=== PATIENT | male | born 1960 | race Caucasian/White ===

== ENCOUNTER 2017-03-23 17:41 | Inpatient (IN) | payer MEDICARE ==
[~2017-03-23] VITALS: Ht 182.9 cm; Wt 78.9 kg
[~2017-03-23 17:41] MED LIST: BENZ1TAB PO; CLOZ25TA2 PO; IBUP800T23 PO; PALI234P IM; SENN8.6T15 PO; TYLE500T PO
[2017-03-23 18:53] VITALS: BP 149/93; PULSE 98; RESP 16; TEMP 98.2; O2SAT 100
--- NOTE | 2017-03-23 19:14 | PD ---
HPI Chief Complaint: Respiratory Symptoms Time Seen by Provider: 19:13 Travel History International Travel<30 days: No Contact w/Intl Traveler<30days: No Traveled to known affect area: No History of Present Illness HPI 56-year-old male came to the emergency room with history of shortness of breath as per his admission. His legal guardian is here who says that patient is acting bizarre as per the assisted living facility. He has history of schizophrenia and had gone to [facility]. When he came back from he was breathing fast and said he was going to . They called 911 and patient was brought in by EMS. His vital signs are stable. He talks to me when I asked questions repeatedly and while talking his breathing gets normal. When his sitting quietly he occasionally starts breathing fast and opening his mouth like air hunger. However his vitals remained stable including a pulse ox. I was told by the family/guardian in the room that patient may have done marijuana because he admitted to doing one earlier. Patient is not the best or reliable historian. [facility] Past Medical History Narrative Medical List of his past medical, surgical, social and family history is reviewed from the nursing note. Medical History: Unable to Obtain Diminished Hearing: No Musculoskeletal: Yes (scabies) Schizophrenia: Yes Tetanus Vaccination: Unknown Past Surgical History Surgical History: Unable to Obtain Social History Alcohol Use: Yes Tobacco Use: Yes Substance Use: Yes Allergies-Medications (Allergen,Severity, Reaction): Coded Allergies: No Known Allergies (Verified , 02/05/15) Comments No known drug allergies. Reported Meds & Prescriptions Reported Meds & Active Scripts Active Reported Proair Hfa 8.5 GM Inh (Albuterol Sulfate) 90 Mcg/Act Aer 2 Puff INH Q6H PRN 108 mcg/actuation Pantoprazole (Pantoprazole Sodium) 40 Mg Tab 40 Mg PO DAILY Lisinopril 10 Mg Tab 10 Mg PO DAILY Invega Sustenna Inj (Paliperidone Palmitate) 234 Mg/1.5 Ml Inj 234 Mg IM Q28D Clozapine 100 Mg Tab 200 Mg PO HS Benztropine (Benztropine Mesylate) 0.5 Mg Tab 1 Mg PO BID Anoro Ellipta Inh (Umeclidinium/Vilanterol) 62.5-25 Mcg/Act Aero 1 Puff INH DAILY Tylenol (Acetaminophen) 325 Mg Tab 325 Mg PO BID Narrative Medication List of his home medication reviewed from the nursing note. Review of Systems Except as stated in HPI: all other systems reviewed are Neg Physical Exam Narrative GENERAL: Awake, alert, anxious, moderate distress SKIN: Focused skin assessment warm/dry. HEAD: Atraumatic. Normocephalic. EYES: Pupils equal and round. No scleral icterus. No injection or drainage. ENT: No nasal bleeding or discharge. Dry mucous membrane NECK: Trachea midline. No JVD. CARDIOVASCULAR: Regular rate and rhythm. No murmur appreciated. RESPIRATORY: No accessory muscle use. Clear to auscultation. Breath sounds equal bilaterally. Paroxysmal tachypnea GASTROINTESTINAL: Abdomen soft, non-tender, nondistended. Hepatic and splenic margins not palpable. MUSCULOSKELETAL: No obvious deformities. No clubbing. No cyanosis. No edema. NEUROLOGICAL: Awake and alert. No obvious cranial nerve deficits. Motor grossly within normal limits. Normal speech. PSYCHIATRIC: Appropriate mood and affect; insight and judgment normal. Data Data Last Documented VS Vital Signs Date Time Temp Pulse Resp B/P Pulse Ox O2 Delivery O2 Flow Rate FiO2 03/23/17 21:29 97.4 03/23/17 21:18 100 Nasal Cannula 2 03/23/17 18:54 101 14 03/23/17 18:53 149/93 Orders Complete Blood Count With Diff (03/23/17 19:43) Comprehensive Metabolic Panel (03/23/17 19:43) Lactic Acid Sepsis Protocol (03/23/17 19:43) Urinalysis - C+S If Indicated (03/23/17 19:43) Blood Culture (03/23/17 19:43) Chest, Single Ap (03/23/17 19:43) Blood Gas Venous (Vbg) (03/23/17 19:43) Blood Glucose (03/23/17 19:43) Ecg Monitoring (03/23/17 19:43) Iv Access Insert/Monitor (03/23/17 19:43) Oximetry (03/23/17 19:43) Oxygen Administration (03/23/17 19:43) Sodium Chlor 0.9% 1000 Ml Inj (Ns 1000 M (03/23/17 19:43) Sodium Chlor 0.9% 1000 Ml Inj (Ns 1000 M (03/23/17 19:43) Sodium Chlor 0.9% 1000 Ml Inj (Ns 1000 M (03/23/17 19:43) Lorazepam Inj (Ativan Inj) (03/23/17 19:45) Electrocardiogram (03/23/17 ) Piperacil-Tazo 4.5 Gm Premix (Zosyn 4.5 (03/23/17 21:00) Vancomycin Inj (Vancomycin Inj) (03/23/17 21:00) Admit Order (Ed Use Only) (03/23/17 21:34) Labs Laboratory Tests Test 03/23/17 03/23/17 19:50 20:01 Blood Gas Puncture Site Blood Gas Patient Temperature 98.6 Venous Blood pH 7.51 Venous Blood Partial Pressure 20 mmHg CO2 Venous Blood Partial Pressure 38 mmHg O2 Venous Blood HCO3 16 mmol/L Venous Blood Oxygen Saturation 73 % Venous Blood Oxygen Content 13.9 Vol % Venous Blood Base Excess -7.1 mmol/L Oxygen Delivery Device NASAL CANNULA Blood Gas Liter Flow 2 L/M White Blood Count 20.8 TH/MM3 Red Blood Count 4.50 MIL/MM3 Hemoglobin 13.3 GM/DL Hematocrit 39.1 % Mean Corpuscular Volume 86.8 FL Mean Corpuscular Hemoglobin 29.5 PG Mean Corpuscular Hemoglobin 34.0 % Concent Red Cell Distribution Width 14.3 % Platelet Count 324 TH/MM3 Mean Platelet Volume 7.6 FL Neutrophils (%) (Auto) 90.2 % Lymphocytes (%) (Auto) 6.2 % Monocytes (%) (Auto) 3.3 % Eosinophils (%) (Auto) 0.0 % Basophils (%) (Auto) 0.3 % Neutrophils # (Auto) 18.8 TH/MM3 Lymphocytes # (Auto) 1.3 TH/MM3 Monocytes # (Auto) 0.7 TH/MM3 Eosinophils # (Auto) 0.0 TH/MM3 Basophils # (Auto) 0.1 TH/MM3 CBC Comment DIFF FINAL Differential Comment Urine Color YELLOW Urine Turbidity CLEAR Urine pH 5.5 Urine Specific [place] 1.016 Urine Protein NEG mg/dL Urine Glucose (UA) NEG mg/dL Urine Ketones TRACE mg/dL Urine Occult Blood NEG Urine Nitrite NEG Urine Bilirubin NEG Urine Urobilinogen 2.0 MG/DL Urine Leukocyte Esterase NEG Urine RBC 1 /hpf Urine WBC LESS THAN 1 /hpf Urine Mucus FEW /lpf Microscopic Urinalysis Comment CATH-CULT NOT IND Sodium Level 140 MEQ/L Potassium Level 3.8 MEQ/L Chloride Level 111 MEQ/L Carbon Dioxide Level 17.5 MEQ/L Anion Gap 12 MEQ/L Blood Urea Nitrogen 12 MG/DL Creatinine 1.07 MG/DL Estimat Glomerular Filtration 72 ML/MIN Rate Random Glucose 110 MG/DL Lactic Acid Level 2.8 mmol/L Calcium Level 9.3 MG/DL Total Bilirubin 0.8 MG/DL Aspartate Amino Transf 19 U/L (AST/SGOT) Alanine Aminotransferase 26 U/L (ALT/SGPT) Alkaline Phosphatase 105 U/L Total Protein 7.4 GM/DL Albumin 4.0 GM/DL MDM Medical Decision Making Medical Screen Exam Complete: Yes Emergency Medical Condition: Yes Medical Record Reviewed: Yes Interpretation(s) Twelve-lead EKG was reviewed by me. Normal sinus rhythm, normal axis, nonspecific ST-T wave changes, first-degree AV block. Heart rate of 90 bpm. Differential Diagnosis Substance abuse, psychosis, PE, pneumonia, sepsis Narrative Course 7:58 PM the possibilities are quite a few with this patient. This could be psychosis secondary to his psych illness. However substance abuse, PE are within the realm of possibilities. I have ordered a arterial blood gas and sepsis workup. He is getting IV fluid bolus. Awaiting for the chest x-ray. My threshold to do a CT pulmonary angiogram is low. 9:23 PM lactic acid is elevated. This completes the picture of the patient's presentation. He is in metabolic acidosis probably secondary to sepsis which is making him tachypneic. This is perceived by the patient as respiratory distress. I still do not have a source for his sepsis. However he is getting fluid and antibiotic as per sepsis protocol. He will require admission. Awaiting for the admitting team to call back. Critical Care Narrative Aggregate critical care time was 30 minutes. Time to perform other separately billable procedures was not included in the critical care time. My time did not include minutes spent treating any other patients simultaneously or on activities that did not directly contribute to the patient's treatment. The services I provided to this patient were to treat and/or prevent clinically significant deterioration that could result in: Sepsis, sepsis protocol, lactic acidosis I provided critical care services requiring my management, as noted below: Chart data review, documentation time, medication orders and management, vital sign assessments/reviewing monitor data, ordering and reviewing lab tests, ordering and interpreting/reviewing x-rays and diagnostic studies, care of the patient and discussion of the patient with the admitting physicians. Procedures EKG Prior to Arrival: No Sepsis Criteria SIRS Criteria (2 or more): Heart rate over 90, RR > 20 or PaCO2 < 32, WBC > 21674, < 4000 or > 10% bands Severe Sepsis (+one): Lactate >2 Diagnosis Primary Impression: Sepsis Qualified Code: A41.9 - Sepsis, due to unspecified organism Additional Impression: Lactic acidosis Admitting Information Admitting Physician Requests: Admit Scripts Amoxicillin 875 Mg [id number] Mg PO BID #10 TAB Ref 0 Prov:Sabrina Robertson MD R1 03/25/17 Prednisone 20 Mg Tab40 Mg PO DAILY #6 TAB Prov:Sabrina Robertson MD R1 03/25/17 Azithromycin 250 Mg [id number] Mg PO DAILY #10 TAB Prov:Sabrina Robertson MD R1 03/25/17 Ernesto Steward MD Mar 23, 2017 19:14
[2017-03-23] MEDS ORDERED: UMEC1AER INH (19:17)
[2017-03-23] MEDS ORDERED: ALBUAER3 INH (19:17)
[2017-03-23] MEDS ORDERED: TYLE325T PO (19:17)
[2017-03-23] MEDS ORDERED: PANT40TA3 PO (19:17)
[2017-03-23] MEDS ORDERED: CLOZ100T3 PO (19:17)
[2017-03-23] MEDS ORDERED: BENZ0.5T PO (19:17)
[2017-03-23] MEDS ORDERED: PALI234P IM (19:17)
[2017-03-23] MEDS ORDERED: LISI10TA3 PO (19:17)
[2017-03-23] MEDS ORDERED: SODIUM CHLOR 0.9% 1000 ML INJ 700 ML IV ONE (19:43)
[2017-03-23] MEDS ORDERED: SODIUM CHLOR 0.9% 1000 ML INJ 1,000 ML IV ONE ×2 (19:43)
[2017-03-23] MEDS ORDERED: LORazepam 2 MG/ML VIAL IV PUSH ONE (19:45)
[2017-03-23 20:11] LABS: BLOOD GAS VENOUS BASE EXCESS -7.1 mmol/L (-2-2); BLOOD GAS VENOUS HCO3 16 mmol/L (22-26); BLOOD GAS VENOUS O2 CONTENT 13.9 Vol % (9.0-17.0); BLOOD GAS VENOUS O2 HGB SAT 73 % (70-76); BLOOD GAS VENOUS PCO2 20 mmHg (44-48); BLOOD GAS VENOUS PO2 38 mmHg (35-40); BLOOD GAS VENOUS pH 7.51 (7.360-7.400); CRITICAL VALUE YES; LITER FLOW 2 L/M; OXYGEN DEVICE NASAL CANNULA; STAT YES; TEMP CORR TO 98.6
--- NOTE | 2017-03-23 20:24 | RADRPT ---
EXAM DATE/TIME: 03/23/2017 20:02 [facility] COMPARISON: CHEST SINGLE AP, March 15, 2011, 15:27. INDICATIONS : Cough MEDICAL HISTORY : None. SURGICAL HISTORY : None. ENCOUNTER: Initial ACUITY: 1 day PAIN SCORE: Non-responsive. LOCATION: chest FINDINGS: A single view of the chest demonstrates the lungs to be symmetrically aerated without evidence of mas s, infiltrate or effusion. The cardiomediastinal contours are unremarkable. Osseous structures are intact. CONCLUSION: No acute disease. There is no evidence of pneumonia. Vikash Wall MD on March 23, 2017 at 20:23 Board Certified Radiologist. This report was verified electronically.
[2017-03-23 20:29] LABS: AUTOMATED NEUTROPHIL # 18.8 TH/MM3 (1.8-7.7); BASOPHIL # 0.1 TH/MM3 (0-0.2); BASOPHIL % 0.3 % (0.0-2.0); HEMATOCRIT 39.1 % (39.0-51.0); HEMO FLAGS DIFF FINAL; LYMPH % 6.2 % (9.0-44.0); LYMPHOCYTE # 1.3 TH/MM3 (1.0-4.8); MEAN CELL VOLUME 86.8 FL (80.0-100.0); MEAN CORPUSCULAR HEMOGLOBIN 29.5 PG (27.0-34.0); MONO % 3.3 % (0.0-8.0); NEUT % 90.2 % (16.0-70.0); PLATELET COUNT 324 TH/MM3 (150-450); RED CELL DISTRIBUTION WIDTH 14.3 % (11.6-17.2); WHITE BLOOD COUNT 20.8 TH/MM3 (4.0-11.0)
[2017-03-23 20:36] LABS: BLOOD, URINE NEG (NEG); COMMENT (UR) CATH-CULT NOT IND; CULTURE IF INDICATED CATH CULTURE NOT IND; GLUCOSE,URINE NEG (NEG); KETONE, URINE TRACE mg/dL (NEG); MUCUS URINE FEW /lpf (OCC); NITRITE,URINE NEG (NEG); PH, URINE 5.5 (5.0-8.5); URINE COLOR YELLOW (YELLW/STRAW)
[2017-03-23 20:52] LABS: ANION GAP 12 MEQ/L (5-15); AST (GOT) 19 U/L (15-37); BICARBONATE 17.5 MEQ/L (21.0-32.0); BLOOD UREA NITROGEN 12 MG/DL (7-18); CHLORIDE 111 MEQ/L (98-107); GLOMERULAR FILTRATION RATE 72 ML/MIN (>89); POTASSIUM 3.8 MEQ/L (3.5-5.1); SODIUM (NA) 140 MEQ/L (136-145)
[2017-03-23 20:53] LABS: ALT (GPT) 26 U/L (12-78)
[2017-03-23 20:54] LABS: ALKALINE PHOSPHATASE 105 U/L (45-117); TOTAL BILIRUBIN ADULT 0.8 MG/DL (0.2-1.0)
[2017-03-23] MEDS ORDERED: VANCOMYCIN INJ 1,000 MG in SODIUM CHLOR 0.9% 250 ML INJ 250 ML IV ONE (21:00)
[2017-03-23] MEDS ORDERED: PIPERACIL-TAZO 4.5 GM PREMIX 100 ML IV ONE (21:00)
[2017-03-23 21:18] VITALS: O2SAT 100
[2017-03-23 21:29] VITALS: TEMP 97.4
[2017-03-23 21:45] VITALS: O2SAT 100
[2017-03-23] MEDS ORDERED: SODIUM CHLORIDE 0.9% FLUSH 10 ML FLUSH IV FLUSH PRN (21:45)
[2017-03-23 22:24] LABS: LACTIC ACID GHOST NOT REPORTABLE
[2017-03-23] MEDS: ENOXAPARIN SODIUM 40 MG/0.4 ML SYRINGE SQ SCH (22:45)
[2017-03-23] MEDS ORDERED: guaiFENesin/CODEINE SYRUP 200 MG/20 MG/10 ML CUP PO PRN (22:45)
[2017-03-23] MEDS ORDERED: ONDANSETRON HCL 4 MG/2 ML VIAL IV PRN (22:45)
[2017-03-23] MEDS ORDERED: ACETAMINOPHEN 325 MG TAB PO PRN (22:45)
[2017-03-23] MEDS ORDERED: RESP: ALBUTEROL 2.5 MG/IPRATROPIUM 0.5 MG NEB (PRN) INH (22:45)
--- NOTE | 2017-03-23 23:14 | RADRPT ---
EXAM DATE/TIME: 03/23/2017 22:59 [facility] COMPARISON: CHEST SINGLE AP, March 23, 2017, 20:02. INDICATIONS : Short of breath MEDICAL HISTORY : None. SURGICAL HISTORY : None. ENCOUNTER: Subsequent ACUITY: 1 day PAIN SCORE: 0/10 LOCATION: chest FINDINGS: PA and lateral views of the chest demonstrate the lungs to be symmetrically aerated without evidence of mass, infiltrate or effusion. Patient has a mild diffuse interstitial prominence throughout the natasha ngs The cardiomediastinal contours are unremarkable. Osseous structures are intact. CONCLUSION: Mild interstitial prominence throughout the lungs increased since the previous film. No pleural effu dayan is seen. Alin Huynh MD on March 23, 2017 at 23:12 Board Certified Radiologist. This report was verified electronically.
--- NOTE | 2017-03-23 23:25 | HHI.HP ---
HPI Service Family Medicine Primary Care Physician Unknown Admission Diagnosis sepsis, metabolic acidosis Diagnoses: International Travel<30 Days: No Contact w/Intl Traveler<30days: No Known Affected Area: No History of Present Illness Patient is a 56-year-old man with history of schizophrenia who presents with shortness of breath, tachypnea, sepsis, lactic acidosis, metabolic acidosis. Patient reports that for the past week he's had a bad cold with associated runny nose and cough. Then, this evening as he was walking back from [employer], he began to feel short of breath and "weird." 911 was called and patient was taken to the [facility] Emergency Department, where he was noted to be tachypneic with a significant leukocytosis and lactic acidosis. He denies any fever or chills. He denies any sore throat, sinus pressure, chest pain. He denies any abdominal pain, nausea, vomiting, diarrhea, skin breakdown. Review of Systems Constitutional: COMPLAINS OF: Fatigue, Dizziness, DENIES: Fever, Chills Endocrine: DENIES: Polydipsia, Polyuria Eyes: DENIES: Blurred vision, Diplopia, Eye inflammation, Eye pain, Vision loss Ears, nose, mouth, throat: COMPLAINS OF: Running Nose, DENIES: Throat pain, Sinus Pain Respiratory: COMPLAINS OF: Cough, Shortness of breath, DENIES: Sputum production Cardiovascular: DENIES: Chest pain, Palpitations, Syncope Gastrointestinal: DENIES: Abdominal pain, Black stools, Bloody stools, Constipation, Diarrhea, Nausea, Vomiting Genitourinary: DENIES: Dysuria Musculoskeletal: DENIES: Joint pain, Muscle aches, Back pain, Neck pain Integumentary: DENIES: Rash Hematologic/lymphatic: DENIES: Bruising Neurologic: COMPLAINS OF: Tremor (patient reports a history of tremor since initiating injectable medication treatment for his schizophrenia), DENIES: Headache, Localized weakness Past Family Social History Past Medical History Schizophrenia on long-term injectable medications Past Surgical History Denies Reported Medications Reported Meds & Active Scripts Active Reported Proair Hfa 8.5 GM Inh (Albuterol Sulfate) 90 Mcg/Act Aer 2 Puff INH Q6H PRN 108 mcg/actuation Pantoprazole (Pantoprazole Sodium) 40 Mg Tab 40 Mg PO DAILY Lisinopril 10 Mg Tab 10 Mg PO DAILY Invega Sustenna Inj (Paliperidone Palmitate) 234 Mg/1.5 Ml Inj 234 Mg IM Q28D Clozapine 100 Mg Tab 200 Mg PO HS Benztropine (Benztropine Mesylate) 0.5 Mg Tab 1 Mg PO BID Anoro Ellipta Inh (Umeclidinium/Vilanterol) 62.5-25 Mcg/Act Aero 1 Puff INH DAILY Tylenol (Acetaminophen) 325 Mg Tab 325 Mg PO BID Allergies: Coded Allergies: No Known Allergies (Verified , 02/05/15) Active Ordered Medications Current Medications Medications (Trade) Dose Ordered Sig/Bruno Route Start Time Stop Time Status Last Admin (NS 1000 ml Inj) 1,000 ml @ 125 mls/hr Q8H IV 03/23/17 21:32 (NS Flush) 2 ml UNSCH PRN IV FLUSH 03/23/17 21:45 Sodium Chloride 2 ml 2 ml BID IV FLUSH 03/24/17 09:00 (Rocephin Inj/NS Inj) 100 ml @ 200 mls/hr Q24H IV 03/24/17 09:00 (Zithromax) 500 mg DAILY PO 03/24/17 09:00 (Tylenol) 650 mg Q4H PRN PO 03/23/17 22:45 (Zofran Inj) 4 mg Q6H PRN IV 03/23/17 22:45 (Robitussin Ac 200-20 Mg/10 ml Liq) 10 ml Q4H PRN PO 03/23/17 22:45 (Lovenox Inj) 40 mg Q24H SQ 03/23/17 22:45 (Restoril) 30 mg HS PRN PO 03/24/17 03:00 03/24/17 03:17 (Tylenol) 325 mg BID PO 03/24/17 09:00 (Ventolin Hfa Inh) 2 puff Q6H PRN INH 03/24/17 03:15 (Cogentin) 1 mg BID PO 03/24/17 09:00 (Clozaril) 200 mg HS PO 03/24/17 21:00 (Prinivil) 10 mg DAILY PO 03/24/17 09:00 (Invega Sustenna Inj) 234 mg Q28D IM 03/24/17 03:15 (Protonix) 40 mg DAILY PO 03/24/17 09:00 Family History Not obtainable from patient as he is difficult to understand. Social History Patient reports that [facility] Patient reports that he smokes cigarettes. He smokes red [place]. He denies dipping them in anything or smoking anything else. He denied any alcohol or drug use. Physical Exam Vital Signs Vital Signs Date Time Temp Pulse Resp B/P Pulse Ox O2 Delivery O2 Flow Rate FiO2 03/23/17 21:45 100 Nasal Cannula 2.00 03/23/17 21:29 97.4 03/23/17 21:18 100 Nasal Cannula 2 03/23/17 21:18 100 Nasal Cannula 2 03/23/17 18:54 101 14 100 Nasal Cannula 2 03/23/17 18:53 98.2 98 16 149/93 100 Nasal Cannula 2 Physical Exam GENERAL: This is a well-nourished, well-developed male patient, who is lying in bed, wide-eyed with bilateral upper extremity tremor and intermittent tachypnea with associated mouth breathing. SKIN: No rashes, ecchymoses or lesions. Cool and dry. HEAD: Atraumatic. Normocephalic. EYES: Pupils equal round and reactive. Extraocular motions intact. No scleral icterus. No injection or drainage. ENT: Nose without bleeding, purulent drainage or septal hematoma. Throat without erythema, tonsillar hypertrophy or exudate. Uvula midline. Airway patent. NECK: Trachea midline. No JVD or lymphadenopathy. Supple, nontender, no meningeal signs. CARDIOVASCULAR: Regular rate and rhythm without murmurs, gallops, or rubs. RESPIRATORY: Diffuse wheezes and rhonchi and extremely coarse breath sounds bilaterally. GASTROINTESTINAL: Abdomen soft, non-tender, nondistended. No hepato-splenomegaly , or palpable masses. No guarding. MUSCULOSKELETAL: Extremities without clubbing, cyanosis, or edema. No joint tenderness, effusion, or edema noted. No calf tenderness. NEUROLOGICAL: Awake and alert. Patient with unintentional tremor of both upper extremities. Cranial nerves II through XII grossly intact. Motor and sensory grossly within normal limits. Normal speech. Laboratory Laboratory Tests Test 03/23/17 03/23/17 19:50 20:01 Blood Gas Puncture Site Blood Gas Patient Temperature 98.6 Venous Blood pH 7.51 Venous Blood Partial Pressure 20 CO2 Venous Blood Partial Pressure 38 O2 Venous Blood HCO3 16 Venous Blood Oxygen Saturation 73 Venous Blood Oxygen Content 13.9 Venous Blood Base Excess -7.1 Oxygen Delivery Device NASAL CANNULA Blood Gas Liter Flow 2 White Blood Count 20.8 Red Blood Count 4.50 Hemoglobin 13.3 Hematocrit 39.1 Mean Corpuscular Volume 86.8 Mean Corpuscular Hemoglobin 29.5 Mean Corpuscular Hemoglobin 34.0 Concent Red Cell Distribution Width 14.3 Platelet Count 324 Mean Platelet Volume 7.6 Neutrophils (%) (Auto) 90.2 Lymphocytes (%) (Auto) 6.2 Monocytes (%) (Auto) 3.3 Eosinophils (%) (Auto) 0.0 Basophils (%) (Auto) 0.3 Neutrophils # (Auto) 18.8 Lymphocytes # (Auto) 1.3 Monocytes # (Auto) 0.7 Eosinophils # (Auto) 0.0 Basophils # (Auto) 0.1 CBC Comment DIFF FINAL Differential Comment Urine Color YELLOW Urine Turbidity CLEAR Urine pH 5.5 Urine Specific [place] 1.016 Urine Protein NEG Urine Glucose (UA) NEG Urine Ketones TRACE Urine Occult Blood NEG Urine Nitrite NEG Urine Bilirubin NEG Urine Urobilinogen 2.0 Urine Leukocyte Esterase NEG Urine RBC 1 Urine WBC LESS THAN 1 Urine Mucus FEW Microscopic Urinalysis Comment CATH-CULT NOT IND Sodium Level 140 Potassium Level 3.8 Chloride Level 111 Carbon Dioxide Level 17.5 Anion Gap 12 Blood Urea Nitrogen 12 Creatinine 1.07 Estimat Glomerular Filtration 72 Rate Random Glucose 110 Lactic Acid Level 2.8 Calcium Level 9.3 Total Bilirubin 0.8 Aspartate Amino Transf 19 (AST/SGOT) Alanine Aminotransferase 26 (ALT/SGPT) Alkaline Phosphatase 105 Total Protein 7.4 Albumin 4.0 Date/Time Procedure Status Source Growth 03/23/17 20:20 Aerobic Blood Culture Received Blood Peripheral Pending 03/23/17 20:20 Anaerobic Blood Culture Received Blood Peripheral Pending Result Diagram: 03/23/17200003/23/172000 Imaging Last Impressions Chest X-Ray 03/23/171942 Signed Impressions: Service Date/Time: Thursday, March 23, 2017 20:02 - CONCLUSION: No acute disease. There is no evidence of pneumonia. Vikash Wall MD Course In the emergency department, patient had Ativan IV, normal saline IV 3 L, blood glucose, VBG, chest x-ray, blood culture, UA, lactic acid, CMP, CBC, EKG, vancomycin IV, Zosyn IV, admission order, urine drug screen. Assessment and Plan Assessment and Plan Patient is a 56-year-old smoker with a one-week history of bad cold with associated cough and runny nose who presents septic with leukocytosis of 20.8 with 90% neutrophils, lactic acid of 2.8. Lung exam remarkable for coarse breath sounds bilaterally with diffuse wheezes and rhonchi. We'll admit for sepsis workup, IV antibiotics for empiric treatment of pneumonia. Code Status Full code Discussed Condition With Patient seen and discussed with Dr. Delgado. Problem List: (1) Pneumonia Status: Acute Plan: Patient is a 56-year-old smoker with a one-week history of bad cold with associated cough and runny nose who presents septic with leukocytosis of 20.8 with 90% neutrophils, lactic acid of 2.8. Lung exam remarkable for coarse breath sounds bilaterally with diffuse wheezes and rhonchi. We'll admit for sepsis workup, IV antibiotics for empiric treatment of pneumonia. Patient received 3 L of IVF bolus in ED. 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 Prednisone 40 mg by mouth daily See assessment and plan above (5) FEN, ppx, chronic medical conditions Status: Acute Plan: Fluids: Maintenance IV fluids Electrolytes: Monitor and replete Nutrition: Regular basic diet DVT prophylaxis: Lovenox 40 mg subcutaneous every 24 hours GI prophylaxis: Patient on Protonix 40 mg by mouth daily Chronic medical conditions: Continue Tylenol by mouth twice a day for pain Plan to wean patient back onto albuterol inhaler for shortness of breath Continue benztropine for Parkinson's Continue clozapine and Invega for schizophrenia Continue lisinopril for hypertension Continue Anoro Ellipta inhaler or pharmacy replacement Physician Certification 2 Midnight Certification Type: Admission for Inpatient Services Order for Inpatient Services The services are ordered in accordance with Medicare regulations or non- Medicare payer requirements, as applicable. In the case of services not specified as inpatient-only, they are appropriately provided as inpatient services in accordance with the 2-midnight benchmark. Estimated LOS (days): 2 2 days is the estimated time the patient will need to remain in the hospital, assuming treatment plan goals are met and no additional complications. Post-Hospital Plan: Penit[facility] Problem Qualifiers (1) Sepsis: Qualified Code: A41.9 - Sepsis, due to unspecified organism Vikash Myers MD R1 Mar 23, 2017 23:25
[2017-03-23 23:55] VITALS: O2SAT 99
[2017-03-23] MEDS: RESP: ALBUTEROL 2.5 MG/IPRATROPIUM 0.5 MG NEB (SCH) INH (23:58)
[2017-03-24] VITALS (10 sets, daily range): BP systolic 105–144; BP diastolic 66–88; PULSE 82–112; RESP 20–24; TEMP 96.1–96.7; O2SAT 97–100
[2017-03-24 00:16] LABS: AMPHETAMINE, URINE NEG (NEG); BARBITURATES, URINE NEG (NEG); COCAINE, URINE NEG (NEG)
[2017-03-24] MEDS ORDERED: TEMAZEPAM 15 MG CAP PO PRN (03:00)
[2017-03-24] MEDS ORDERED: PALIPERIDONE PALMITATE 234 MG/1.5 ML SYRINGE IM SCH (03:15)
[2017-03-24] MEDS ORDERED: ALBUTEROL SULFATE 90 MCG/ACT HFA 18 GM INHALER INH PRN (03:15)
[2017-03-24] MEDS: RESP: ALBUTEROL 2.5 MG/IPRATROPIUM 0.5 MG NEB (SCH) INH ×4 (04:18→21:38)
[2017-03-24] MEDS ORDERED: CANDIDA ALBICANS 0.1 ML SYRINGE I-DERMAL ONE (06:00)
[2017-03-24] MEDS ORDERED: TUBERCULIN, PPD 5 UNITS/0.1 ML SYRINGE I-DERMAL ONE (06:00)
--- NOTE | 2017-03-24 08:07 | HHI.FPPN ---
Subjective Remarks Elan Carty is a 56yo gentleman with h/o schizophrenia admitted for SOB, tachypnea, and sepsis. He has had URI symptoms for one week, with cough and runny nose. For further details, please see resident H&P. This morning, he reports that he feels fine. He denies fevers. He is eating breakfast and drinking liquids without difficulty. He is ambulating without difficulty today. ROS: + SOB, improved. No cough. No wheeze. No fevers. All other systems reviewed are negative. PMH/PSxH/SocHx/FamHx: Per resident H&P. Significant for: schizophrenia with extrapyramidal symptoms from treatment, HTN (per EMR review). No prior surgery. FamHx: unable to obtain. Lives in a boarding home. + tobacco abuse. No alcohol or recreational abuse. Objective Vitals Vital Signs Date Time Temp Pulse Resp B/P Pulse Ox O2 Delivery O2 Flow Rate FiO2 03/24/17 04:19 99 Nasal Cannula 2.00 03/24/17 04:00 96.1 82 22 105/66 100 03/24/17 01:35 96.2 94 20 140/88 98 03/23/17 23:55 99 03/23/17 21:45 100 Nasal Cannula 2.00 03/23/17 21:29 97.4 03/23/17 21:18 100 Nasal Cannula 2 03/23/17 21:18 100 Nasal Cannula 2 03/23/17 18:54 101 14 100 Nasal Cannula 2 03/23/17 18:53 98.2 98 16 149/93 100 Nasal Cannula 2 I/O 03/23/17 03/23/17 03/23/17 03/24/17 03/24/17 03/24/17 07:00 15:00 23:00 07:00 15:00 23:00 Intake Total 3100 ml 240 ml Output Total 500 ml Balance 2600 ml 240 ml Intake Oral 240 ml IV Total 3100 ml Output Urine Total 500 ml # Voids 2 1 Result Diagram: 03/23/17200003/23/172000 Objective Remarks GENERAL: in NAD, no resp distress, nontoxic. Standing in room and ambulating in room without difficulty. HEENT: NCAT, EOMI, no scleral icterus, no conjunctival injection. MMM. NECK: Supple, no meningeal signs CV: RRR, S1 S2. No murmurs CHEST/PULM: Coarse sounds throughout. ABD/GI: +BS, soft, nondistended. EXT: 2+ DP pulses. No edema. No calf tenderness. NEURO: Awake, alert. Normal muscle tone. SKIN: No rashes, no jaundice PSYCH: Mood and affect are appropriate. Speech is slowed. A/P Assessment and Plan Patient is a 56-year-old smoker admitted for sepsis felt secondary to interstitial pneumonia Attending Attestation Patient seen, examined, and discussed with resident team. The patient has been seen and examined. The chart and all resident notes have been reviewed. I agree that inpatient care is appropriate and that a two midnight stay is expected for the reasons documented in the resident history and physical. I have discussed this with the resident and certify the resident s order for inpatient admission. Problem List: (1) Pneumonia Status: Acute Plan: Patient is a 56-year-old smoker with a one-week history of bad cold with associated cough and runny nose who presents septic with leukocytosis of 20.8 with 90% neutrophils, lactic acid of 2.8. Lung exam remarkable for coarse breath sounds bilaterally with diffuse wheezes and rhonchi. We'll admit for sepsis workup, IV antibiotics for empiric treatment of pneumonia. Patient received 3 L of IVF bolus in ED. Lactic acid 2.8 --> 1.9 Antibiotic regimen: Ceftriaxone 1 g IV every 24 hours 03/24/17 --> Azithromycin 500 mg by mouth daily 03/24/17 --> Vancomycin x 1 in ER (03/23/17) Zosyn x 1 in ER (03/23/17) Check PPD. Blood culture pending Legionella urinary Ag negative Pneumococcal urinary Ag negative Influenza A/B antigen pending Sputum Cx pending (2) Sepsis Status: Acute Plan: See assessment and plan above. Monitor vital signs closely. (3) Lactic acidosis Status: Resolved Plan: See assessment and plan above Lactic acid 2.8 --> 1.9 overnight (4) COPD with acute exacerbation Status: Acute Plan: Given smoking history, patient likely has a component of COPD exacerbation. Prednisone 40 mg by mouth daily Provide nebulizers as ordered Continue home medications. Provide oxygen supplementation as needed. Currently maintaining O2 sat on room air. See assessment and plan above (5) Schizophrenia Status: Chronic Plan: Continue home medications for schizophrenia - Clozapine and Invega. (6) Extrapyramidal movements present Status: Chronic Plan: Continue benztropine for Parkinson's (7) Hypertension Status: Chronic Plan: Continue lisinopril for hypertension Problem Qualifiers (1) Sepsis: Qualified Code: A41.9 - Sepsis, due to unspecified organism Rosana Araya MD Mar 24, 2017 08:07 (1) Sepsis: Qualified Code: A41.9 - Sepsis, due to unspecified organism Rosana Araya MD Mar 24, 2017 08:07 Rosana Araya MD Mar 24, 2017 08:07
[2017-03-24] MEDS: SODIUM CHLORIDE 0.9% FLUSH 10 ML FLUSH IV FLUSH SCH ×2 (08:58→20:56)
[2017-03-24] MEDS: predniSONE 20 MG TAB PO SCH (08:58)
[2017-03-24] MEDS: cefTRIAXone INJ 1,000 MG in SODIUM CHLORIDE 0.9% INJ 100 ML IV SCH (08:58)
[2017-03-24] MEDS: PANTOPRAZOLE SOD 40 MG DELAYED RELEASE TAB PO SCH (08:59)
[2017-03-24] MEDS: AZITHROMYCIN 250 MG TAB PO SCH (08:59)
[2017-03-24] MEDS: BENZTROPINE MESYLATE 1 MG TAB PO SCH ×2 (08:59→20:55)
[2017-03-24] MEDS ORDERED: ACETAMINOPHEN 325 MG TAB PO SCH (09:00)
[2017-03-24] MEDS: UMECLIDINIUM 62.5 MCG/VILANTEROL 25 MCG INHALER INH SCH (09:00)
[2017-03-24] MEDS: LISINOPRIL 10 MG TAB PO SCH (09:00)
[2017-03-24 12:10] LABS: AUTOMATED NEUTROPHIL # 19.8 TH/MM3 (1.8-7.7); BASOPHIL % 0.1 % (0.0-2.0); HEMATOCRIT 37.1 % (39.0-51.0); HEMO FLAGS DIFF FINAL; LYMPH % 4.5 % (9.0-44.0); MEAN CELL VOLUME 86.9 FL (80.0-100.0); MEAN CORPUSCULAR HGB CONC 33.4 % (32.0-36.0); NEUT % 90.4 % (16.0-70.0); PLATELET COUNT 289 TH/MM3 (150-450); RED BLOOD COUNT 4.27 MIL/MM3 (4.50-5.90); RED CELL DISTRIBUTION WIDTH 14.4 % (11.6-17.2); WHITE BLOOD COUNT 21.9 TH/MM3 (4.0-11.0)
[2017-03-24] MEDS: SODIUM CHLOR 0.9% 1000 ML INJ 1,000 ML IV SCH ×2 (12:14→23:08)
[2017-03-24 12:37] LABS: BICARBONATE 19.5 MEQ/L (21.0-32.0); POTASSIUM 3.4 MEQ/L (3.5-5.1)
--- NOTE | 2017-03-24 13:16 | EKG ---
Date Performed: 03/23/2017 Time Performed: 20:40:43 PTAGE: 56 years EKG: Sinus rhythm WITH FIRST DEGREE AV BLOCK INCOMPLETE RIGHT BUNDLE BRANCH BLOCK ABNORMAL ECG NO PREVIOUS TRACING DOCTOR: Jose Baez Interpretating Date/Time 03/24/2017 13:12:25
[2017-03-24] MEDS ORDERED: ENALAPRILAT 1.25 MG/ML VIAL IV PRN (15:15)
[2017-03-24] MEDS ORDERED: POTASSIUM CHLORIDE 10 MEQ CAP PO ONE (15:15)
[2017-03-24] MEDS ORDERED: cloZAPine 100 MG TAB PO SCH (21:00)
[2017-03-24] MEDS: ENOXAPARIN SODIUM 40 MG/0.4 ML SYRINGE SQ SCH (22:10)
[2017-03-25] VITALS (8 sets, daily range): BP systolic 102–121; BP diastolic 63–73; PULSE 75–99; RESP 16–20; TEMP 95.7–96.6; O2SAT 95–100
[2017-03-25] MEDS: RESP: ALBUTEROL 2.5 MG/IPRATROPIUM 0.5 MG NEB (SCH) INH ×3 (04:23→16:11)
[2017-03-25] MEDS ORDERED: SKIN TEST RESULT OTHER SCH (06:00)
[2017-03-25] MEDS: AZITHROMYCIN 250 MG TAB PO SCH (08:07)
[2017-03-25] MEDS: SODIUM CHLORIDE 0.9% FLUSH 10 ML FLUSH IV FLUSH SCH (08:07)
[2017-03-25] MEDS: PANTOPRAZOLE SOD 40 MG DELAYED RELEASE TAB PO SCH (08:07)
[2017-03-25] MEDS: predniSONE 20 MG TAB PO SCH (08:07)
[2017-03-25] MEDS: BENZTROPINE MESYLATE 1 MG TAB PO SCH (08:07)
[2017-03-25] MEDS: LISINOPRIL 10 MG TAB PO SCH (08:07)
[2017-03-25] MEDS: SODIUM CHLOR 0.9% 1000 ML INJ 1,000 ML IV SCH (08:07)
[2017-03-25] MEDS: UMECLIDINIUM 62.5 MCG/VILANTEROL 25 MCG INHALER INH SCH (08:08)
[2017-03-25] MEDS: cefTRIAXone INJ 1,000 MG in SODIUM CHLORIDE 0.9% INJ 100 ML IV SCH (08:08)
[2017-03-25] MEDS ORDERED: AMOX875T PO (09:14)
[2017-03-25] MEDS ORDERED: AZIT250T3 PO (09:14)
[2017-03-25] MEDS ORDERED: PRED20 PO (09:14)
--- NOTE | 2017-03-25 09:19 | HHI.DCPOC ---
Discharge Care Plan Diagnosis: (1) Pneumonia (2) COPD with acute exacerbation Goals to Promote Your Health * To prevent worsening of your condition and complications * To maintain your health at the optimal level Directions to Meet Your Goals Take your medications as prescribed Follow your dietary instruction Follow activity as directed Keep your appointments as scheduled Take your immunizations and boosters as scheduled If your symptoms worsen call your PCP, if no PCP go to Urgent Care Center or Emergency Room Smoking is Dangerous to Your Health. Avoid second hand smoke Call the 24-hour hour crisis hotline for domestic abuse at Sabrina Robertson MD R1 Mar 25, 2017 09:19
[2017-03-25 12:14] LABS: BICARBONATE 20.1 MEQ/L (21.0-32.0)
[2017-03-25 12:54] LABS: POTASSIUM 4.4 MEQ/L (3.5-5.1)
[2017-03-25 15:41] LABS: AUTOMATED NEUTROPHIL # 9.3 TH/MM3 (1.8-7.7); BASOPHIL # 0.1 TH/MM3 (0-0.2); BASOPHIL % 0.7 % (0.0-2.0); EOSINOPHIL % 0.2 % (0.0-4.0); HEMATOCRIT 37.3 % (39.0-51.0); LYMPH % 8.9 % (9.0-44.0); LYMPHOCYTE # 0.9 TH/MM3 (1.0-4.8); MEAN CELL VOLUME 87.7 FL (80.0-100.0); MEAN CORPUSCULAR HEMOGLOBIN 29.8 PG (27.0-34.0); MEAN CORPUSCULAR HGB CONC 33.9 % (32.0-36.0); MONO % 1.4 % (0.0-8.0); NEUT % 88.8 % (16.0-70.0); PLATELET COUNT 268 TH/MM3 (150-450); RED BLOOD COUNT 4.25 MIL/MM3 (4.50-5.90); WHITE BLOOD COUNT 10.4 TH/MM3 (4.0-11.0)
[2017-03-25 15:42] LABS: HEMO FLAGS AUTO DIFF
--- NOTE | 2017-03-25 16:15 | HHI.FPPN ---
Subjective Remarks Elan Carty is a 56yo gentleman with h/o schizophrenia admitted for SOB, tachypnea, and sepsis. He has had URI symptoms for one week, with cough and runny nose. Patient is doing well. No acute events overnight. Adequate PO intake, regular bowel movements. Denies pain or shortness of breath, chest pain, N/V, diarrhea or constipation. (Sabrina Robertson MD R1) Objective Vitals Vital Signs Date Time Temp Pulse Resp B/P Pulse Ox O2 Delivery O2 Flow Rate FiO2 03/25/17 16:00 96.6 88 16 121/73 97 03/25/17 12:24 95.8 86 17 109/67 95 03/25/17 09:23 75 03/25/17 08:59 99 03/25/17 08:14 96.0 99 18 110/67 99 03/25/17 04:24 99 21 03/25/17 04:00 95.8 89 20 109/65 100 03/25/17 00:00 95.7 88 20 102/63 98 03/24/17 23:09 18 03/24/17 21:39 99 21 03/24/17 20:00 96.1 92 20 118/72 99 I/O 03/24/17 03/24/17 03/24/17 03/25/17 03/25/17 03/25/17 07:00 15:00 23:00 07:00 15:00 23:00 Intake Total 240 ml 360 ml 240 ml 1820 ml Output Total 300 ml Balance 240 ml 60 ml 240 ml 1820 ml Intake Oral 240 ml 360 ml 240 ml 1820 ml Output Urine Total 300 ml # Voids 1 4 1 1 2 # Bowel Movements 1 0 0 (Sabrina Robertson MD R1) Result Diagram: 03/25/17 1451 03/25/17 1142 Objective Remarks GENERAL: in NAD, no resp distress, nontoxic. Standing in room and ambulating in room without difficulty. HEENT: NCAT, EOMI, no scleral icterus, no conjunctival injection. MMM. CV: RRR, S1 S2. No murmurs CHEST/PULM: Mild coarse sounds in the lower lobes with occasional crackles. ABD/GI: +BS, soft, nondistended. EXT: No edema. No calf tenderness. NEURO: Awake, alert. Normal muscle tone. SKIN: No rashes, no jaundice PSYCH: Mood and affect are appropriate. Speech is slowed. (Sabrina Robertson MD R1) A/P Assessment and Plan Patient is a 56-year-old smoker admitted for sepsis felt secondary to interstitial pneumonia Discharge Planning D/C to shelter today (Sabrina Robertson MD R1) Attending Attestation Patient seen, examined, and discussed with Dr. Robertson. I agree with assessment and management as documented and discussed with me. Pt reports he is at his baseline. He would like to go home. WBC has markedly improved. Discharge home with antibiotics. (Rosana Araya MD) Problem List: (1) Pneumonia Status: Acute Plan: Leukocytosis of 20.8 with 90% neutrophils, lactic acid of 2.8. Lung exam remarkable for coarse breath sounds bilaterally with diffuse wheezes and rhonchi. - Patient has improved. WBC of 10.4, improved lung exam and breathing. Satting 97% on room air. Antibiotic regimen: Ceftriaxone 1 g IV every 24 hours 03/24/17 --> Azithromycin 500 mg by mouth daily 03/24/17 --> Vancomycin x 1 in ER (03/23/17) Zosyn x 1 in ER (03/23/17) PPD negative Legionella urinary Ag negative Pneumococcal urinary Ag negative Influenza A/B antigen pending Cx show no growth Will transition Abx to PO for d/c (2) Sepsis Status: Resolved Plan: See assessment and plan above. (3) COPD with acute exacerbation Status: Acute Plan: Given smoking history, patient likely has a component of COPD exacerbation. Prednisone 40 mg by mouth daily Provide nebulizers as ordered Continue home medications. Provide oxygen supplementation as needed. Currently maintaining O2 sat on room air. See assessment and plan above (4) Schizophrenia Status: Chronic Plan: Continue home medications for schizophrenia - Clozapine and Invega. (5) Extrapyramidal movements present Status: Chronic Plan: Continue benztropine for Parkinson's (6) Hypertension Status: Chronic Plan: Continue lisinopril for hypertension (7) FEN Status: Acute Plan: FEN: Regular diet, patient refused IVF, replace electrolytes accordingly DVT Prophy: Lovenox Code: FULL Dispo: D/C today (Sabrina Robertson MD R1) Problem Qualifiers (1) Sepsis: Qualified Code: A41.9 - Sepsis, due to unspecified organism Sabrina Robertson MD R1 Mar 25, 2017 16:15 Rosana Araya MD Mar 25, 2017 20:16
[2017-03-25 16:23] LABS: TEARDROP RBCS 1+ (NORMAL)
[2017-03-25 16:24] LABS: PLATELET ESTIMATE SMEAR NORMAL (NORMAL); PLATELET MORPHOLOGY NORMAL (NORMAL); SCAN/DIFF AUTO DIFF CONFIRMED
--- NOTE | 2017-03-26 09:40 | HHI.DS ---
Discharge Summary Admission Date Mar 23, 2017 at 21:35 Discharge Date: Mar 25, 2017 Admitting Diagnosis sepsis, metabolic acidosis (1) Pneumonia Diagnosis: Principal Plan: Leukocytosis of 20.8 with 90% neutrophils, lactic acid of 2.8. Lung exam remarkable for coarse breath sounds bilaterally with diffuse wheezes and rhonchi. - Patient has improved. WBC of 10.4, improved lung exam and breathing. Satting 97% on room air. Antibiotic regimen: Ceftriaxone 1 g IV every 24 hours 03/24/17 --> Azithromycin 500 mg by mouth daily 03/24/17 --> Vancomycin x 1 in ER (03/23/17) Zosyn x 1 in ER (03/23/17) PPD negative Legionella urinary Ag negative Pneumococcal urinary Ag negative Influenza A/B antigen pending Cx show no growth Will transition Abx to PO for d/c (2) Sepsis Diagnosis: Principal Plan: See assessment and plan above. (3) COPD with acute exacerbation Diagnosis: Principal Plan: Given smoking history, patient likely has a component of COPD exacerbation. Prednisone 40 mg by mouth daily Provide nebulizers as ordered Continue home medications. Provide oxygen supplementation as needed. Currently maintaining O2 sat on room air. See assessment and plan above (4) Schizophrenia Diagnosis: Secondary Plan: Continue home medications for schizophrenia - Clozapine and Invega. (5) Extrapyramidal movements present Diagnosis: Secondary Plan: Continue benztropine for Parkinson's (6) Hypertension Diagnosis: Secondary Plan: Continue lisinopril for hypertension (7) FEN Plan: FEN: Regular diet, patient refused IVF, replace electrolytes accordingly DVT Prophy: Lovenox Code: FULL Dispo: D/C today Brief History Patient is a 56-year-old man with history of schizophrenia who presents with shortness of breath, tachypnea, sepsis, lactic acidosis, metabolic acidosis. Patient reports that for the past week he's had a bad cold with associated runny nose and cough. Then, this evening as he was walking back from [employer], he began to feel short of breath and "weird." 911 was called and patient was taken to the [facility] Emergency Department, where he was noted to be tachypneic with a significant leukocytosis and lactic acidosis. He denies any fever or chills. He denies any sore throat, sinus pressure, chest pain. He denies any abdominal pain, nausea, vomiting, diarrhea, skin breakdown. CBC/BMP: 03/25/17 1451 03/25/17 1142 Significant Findings Laboratory Tests Test 03/23/17 03/23/17 03/24/17 03/25/17 19:50 20:01 11:19 11:42 Venous Blood pH 7.51 (7.360-7.400) Venous Blood Partial Pressure 20 mmHg (44-48) CO2 Venous Blood HCO3 16 mmol/L (22-26) Venous Blood Base Excess -7.1 mmol/L (-2-2) White Blood Count 20.8 TH/MM3 21.9 TH/MM3 (4.0-11.0) (4.0-11.0) Neutrophils (%) (Auto) 90.2 % 90.4 % (16.0-70.0) (16.0-70.0) Lymphocytes (%) (Auto) 6.2 % 4.5 % (9.0-44.0) (9.0-44.0) Neutrophils # (Auto) 18.8 TH/MM3 19.8 TH/MM3 (1.8-7.7) (1.8-7.7) Urine Ketones TRACE mg/dL (NEG) Urine Mucus FEW /lpf (OCC) Chloride Level 111 MEQ/L 113 MEQ/L 111 MEQ/L (98-107) (98-107) (98-107) Carbon Dioxide Level 17.5 MEQ/L 19.5 MEQ/L 20.1 MEQ/L (21.0-32.0) (21.0-32.0) (21.0-32.0) Estimat Glomerular Filtration 72 ML/MIN (>89) 77 ML/MIN (>89) Rate Random Glucose 110 MG/DL 115 MG/DL (74-106) (74-106) Lactic Acid Level 2.8 mmol/L (0.4-2.0) Red Blood Count 4.27 MIL/MM3 (4.50-5.90) Hemoglobin 12.4 GM/DL (13.0-17.0) Hematocrit 37.1 % (39.0-51.0) Monocytes # (Auto) 1.1 TH/MM3 (0-0.9) Potassium Level 3.4 MEQ/L (3.5-5.1) B-Type Natriuretic Peptide 106 PG/ML (0-100) Test 03/25/17 14:51 Red Blood Count 4.25 MIL/MM3 (4.50-5.90) Hemoglobin 12.6 GM/DL (13.0-17.0) Hematocrit 37.3 % (39.0-51.0) Neutrophils (%) (Auto) 88.8 % (16.0-70.0) Lymphocytes (%) (Auto) 8.9 % (9.0-44.0) Neutrophils # (Auto) 9.3 TH/MM3 (1.8-7.7) Lymphocytes # (Auto) 0.9 TH/MM3 (1.0-4.8) Tear Drop Cells 1+ (NORMAL) Imaging Last 72 hours Impressions Chest X-Ray 03/23/171942 Signed Impressions: Service Date/Time: Friday, March 23, 2017 20:02 - CONCLUSION: No acute disease. There is no evidence of pneumonia. Vikash Wall MD PE at Discharge GENERAL: in NAD, no resp distress, nontoxic. Standing in room and ambulating in room without difficulty. HEENT: NCAT, EOMI, no scleral icterus, no conjunctival injection. MMM. CV: RRR, S1 S2. No murmurs CHEST/PULM: Mild coarse sounds in the lower lobes with occasional crackles. ABD/GI: +BS, soft, nondistended. EXT: No edema. No calf tenderness. NEURO: Awake, alert. Normal muscle tone. SKIN: No rashes, no jaundice PSYCH: Mood and affect are appropriate. Speech is slowed. Hospital Course Patient is a 56-year-old man with history of schizophrenia who presented with shortness of breath, tachypnea, sepsis, lactic acidosis, metabolic acidosis. Patient reported having a bad cold for a week, was tachycardic and temperature was <96.8. Lung exam showed bilateral rhonchi and diffuse wheezing, found to have leukocytosis of 20.8 w/90% neutrophils with lactic acidosis. Based on vitals and lab findings, patient met SIRS criteria for sepsis. He was placed on Cetriaxone 1g IV Q24H, Azithromycin 500 mg by mouth daily, and IVF. Patient also recieved scheduled duonebs and albuterol PRN. Infectious panel w/blood cx were ordered. Infectious panel work-up was negative, except for influenza A/B, which was still pending. However, WBC reached normal limits and improvement was noted on lung exam and shortness of breath. Patient lives in care home. Upon d/c, he was instructed to continue treatment w / PO antibiotics for 5 days (total 7 day course), f/u with PCP within 2 weeks, and prednisone for 6 more days to complete treatment. Pt Condition on Discharge: Stable Discharge Disposition: Discharge Home Discharge Instructions DIET: Follow Instructions for: As Tolerated, No Restrictions Activities you can perform: Regular-No Restrictions Follow up Referrals: PCP Follow-up - 2 Weeks New Medications: Amoxicillin (Amoxicillin) 875 Mg Tab 875 MG PO BID Infection #10 Ref 0 TAB Azithromycin (Azithromycin) 250 Mg Tab 500 MG PO DAILY #10 TAB Prednisone (Prednisone) 20 Mg Tab 40 MG PO DAILY #6 TAB Continued Medications: Acetaminophen (Tylenol) 325 Mg Tab 325 MG PO BID #1 Ref 0 TAB Albuterol 8.5 GM Inh (Proair Hfa 8.5 GM Inh) 90 Mcg/Act Aer 2 PUFF INH Q6H 108 mcg/actuation PRN SHORTNESS OF BREATH #1 Ref 0 INHALER Benztropine (Benztropine) 0.5 Mg Tab 1 MG PO BID Parkinson's #60 Ref 0 TAB Clozapine (Clozapine) 100 Mg Tab 200 MG PO HS Schizophrenia Ref 0 TAB Lisinopril (Lisinopril) 10 Mg Tab 10 MG PO DAILY #30 Ref 0 TAB Paliperidone Palmitate Inj (Invega Sustenna Inj) 234 Mg/1.5 Ml Inj 234 MG IM Q28D Schizophrenia #1 Ref 0 VIAL Pantoprazole (Pantoprazole) 40 Mg Tab 40 MG PO DAILY Reflux #30 Ref 0 TAB Umeclidinium-Vilanterol Inh (Anoro Ellipta Inh) 62.5-25 Mcg/Act Aero 1 PUFF INH DAILY COPD #1 Ref 0 INHALER Sabrina Robertson MD R1 Mar 26, 2017 09:40
[2017-03-26 17:08] LABS: BATH SALTS (MDPV) UR NEG (NEG); ECSTASY (MDMA) UR NEG (NEG); GABAPENTIN UR NEG (NEG); HEROIN (6-ACETYLMORPHINE) UR NEG (NEG); HYDROMORPHONE U NEG (NEG); K2 SPICE UR NEG (NEG); OBMETHADONE UR NEG (NEG); OXYCODONE (PERCODAN) NEG (NEG); PHENCYCLIDINE URINE NEG (NEG)
== END 2017-03-25 17:15 | disposition home or self-care (01) | DRG 871 ==
LOC: NEPC 17:41 → NEDA 21:35 → N05B 03-24 01:30
PROVIDERS: ADMIT Family Medicine; ATTEND Family Medicine
DX: A41.9 Sepsis, unspecified organism (principal); J18.9 Pneumonia, unspecified organism; E87.2 Acidosis; G20 Parkinson's disease; J44.0 Chronic obstructive pulmonary disease with (acute) lower respiratory infection; J44.1 Chronic obstructive pulmonary disease with (acute) exacerbation; I44.0 Atrioventricular block, first degree; F20.9 Schizophrenia, unspecified; F17.210 Nicotine dependence, cigarettes, uncomplicated; I10 Essential (primary) hypertension; K21.9 Gastro-esophageal reflux disease without esophagitis
CPT/HCPCS: 71010; 71020; 80048; 80053; 80307; 81001; 82805; 83605; 83880; 85025; 87040; 87086; 87449; 93005; 94150; 94640; 94667; 94668; 96361; 96365; 96375; G0481; J0696; J2060; J2426; J2543; J3370; J7030; J7050; J7512

== ENCOUNTER 2017-05-13 18:47 | Observation (INO) | payer MEDICARE ==
[~2017-05-13 18:47] MED LIST changes: +ALBUAER3 INH; +AMOX875T PO; +AZIT250T3 PO; +BENZ0.5T PO; -BENZ1TAB PO; +CLOZ100T3 PO; -CLOZ25TA2 PO; -IBUP800T23 PO; +LISI10TA3 PO; +PANT40TA3 PO; +PRED20 PO; -SENN8.6T15 PO; +TYLE325T PO; -TYLE500T PO; +UMEC1AER INH
[2017-05-13 20:02] VITALS: BP 141/83; PULSE 108; RESP 16; TEMP 98.7; O2SAT 97
--- NOTE | 2017-05-13 20:12 | PD ---
HPI Chief Complaint: Syncope/Near-Syncope Time Seen by Provider: 19:59 Travel History International Travel<30 days: No Contact w/Intl Traveler<30days: No Traveled to known affect area: No History of Present Illness HPI 56-year-old male with PMH of Parkinson's, schizophrenia, hyperlipidemia presents to the ED for evaluation after syncopal episode. Return to EMS this episode was witnessed. Patient states he became very dizzy, fell, striking his ear on the refrigerator. He is unsure if he lost consciousness. On presentation he denies headache, dizziness, vision changes, neck pain, chest pain, shortness of breath, abdominal pain, nausea, vomiting, dysuria, limitations to range of motion of the extremities. He endorses chronic tremor of the left hand. PFSH Past Medical History Diminished Hearing: No Musculoskeletal: Yes (scabies) Schizophrenia: Yes Social History Alcohol Use: Yes Tobacco Use: Yes Substance Use: Yes Allergies-Medications (Allergen,Severity, Reaction): Coded Allergies: No Known Allergies (Verified , 05/13/17) Reported Meds & Prescriptions Reported Meds & Active Scripts Active Reported Triazolam 0.125 Mg Tab 0.25 Mg PO HS Proair Hfa 8.5 GM Inh (Albuterol Sulfate) 90 Mcg/Act Aer 2 Puff INH Q6H PRN 108 mcg/actuation Pantoprazole (Pantoprazole Sodium) 40 Mg Tab 40 Mg PO DAILY Lisinopril 10 Mg Tab 10 Mg PO DAILY Invega Sustenna Inj (Paliperidone Palmitate) 234 Mg/1.5 Ml Inj 234 Mg IM Q28D Clozapine 100 Mg Tab 200 Mg PO HS Benztropine (Benztropine Mesylate) 0.5 Mg Tab 1 Mg PO BID Anoro Ellipta Inh (Umeclidinium/Vilanterol) 62.5-25 Mcg/Act Aero 1 Puff INH DAILY Tylenol (Acetaminophen) 325 Mg Tab 325 Mg PO BID Review of Systems Except as stated in HPI: all other systems reviewed are Neg Physical Exam Narrative GENERAL: Well-nourished, well-developed overweight male no acute distress. SKIN: Focused skin assessment warm/dry. Crusted blood in the small laceration on the left pinna. HEAD: Normocephalic. EYES: No scleral icterus. No injection or drainage. NECK: Supple, trachea midline. No JVD or lymphadenopathy. CARDIOVASCULAR: Regular rate and rhythm without murmurs, gallops, or rubs. RESPIRATORY: Breath sounds clear and equal bilaterally. No accessory muscle use. GASTROINTESTINAL: Abdomen soft, non-tender, nondistended. MUSCULOSKELETAL: No cyanosis, or edema. NEUROLOGICAL: Awake and alert. Cranial nerves II through XII intact. Motor and sensory grossly within normal limits. Five out of 5 muscle strength in all muscle groups. Normal speech. BACK: Nontender without obvious deformity. No CVA tenderness. Data Data Last Documented VS Vital Signs Date Time Temp Pulse Resp B/P (MAP) Pulse Ox O2 Delivery O2 Flow Rate FiO2 05/13/17 21:44 90 18 143/88 (106) 99 Room Air 05/13/17 20:02 98.7 Orders Orders Electrocardiogram (05/13/17 20:06) Complete Blood Count With Diff (05/13/17 20:06) Comprehensive Metabolic Panel (05/13/17 20:06) Magnesium (Mg) (05/13/17 20:06) Ckmb (Isoenzyme) Profile (05/13/17 20:06) Troponin I (05/13/17 20:06) Act Partial Throm Time (Ptt) (05/13/17 20:06) Prothrombin Time / Inr (Pt) (05/13/17 20:06) Urinalysis - C+S If Indicated (05/13/17 20:06) Chest, Single Ap (05/13/17 20:06) Ct Brain W/O Iv Contrast(Rout) (05/13/17 20:06) Ecg Monitoring (05/13/17 20:06) Iv Access Insert/Monitor (05/13/17 20:06) Oximetry (05/13/17 20:06) Sodium Chloride 0.9% Flush (Ns Flush) (05/13/17 20:15) CKMB (05/13/17 20:15) CKMB% (05/13/17 20:15) Acetaminophen (Tylenol) (05/13/17 21:45) Admit Order (Ed Use Only) (05/13/17 22:01) Labs Laboratory Tests Test 05/13/17 20:15 05/13/17 20:45 White Blood Count 18.8 TH/MM3 Red Blood Count 4.32 MIL/MM3 Hemoglobin 12.9 GM/DL Hematocrit 38.5 % Mean Corpuscular Volume 89.1 FL Mean Corpuscular Hemoglobin 29.9 PG Mean Corpuscular Hemoglobin Concent 33.6 % Red Cell Distribution Width 14.6 % Platelet Count 298 TH/MM3 Mean Platelet Volume 6.8 FL Neutrophils (%) (Auto) 84.3 % Lymphocytes (%) (Auto) 9.5 % Monocytes (%) (Auto) 5.4 % Eosinophils (%) (Auto) 0.6 % Basophils (%) (Auto) 0.2 % Neutrophils # (Auto) 15.8 TH/MM3 Lymphocytes # (Auto) 1.8 TH/MM3 Monocytes # (Auto) 1.0 TH/MM3 Eosinophils # (Auto) 0.1 TH/MM3 Basophils # (Auto) 0.0 TH/MM3 CBC Comment DIFF FINAL Differential Comment Prothrombin Time 10.8 SEC Prothromb Time International Ratio 1.0 RATIO Activated Partial Thromboplast Time 32.2 SEC Blood Urea Nitrogen 15 MG/DL Creatinine 1.27 MG/DL Random Glucose 124 MG/DL Total Protein 6.8 GM/DL Albumin 3.7 GM/DL Calcium Level 8.0 MG/DL Magnesium Level 2.0 MG/DL Alkaline Phosphatase 98 U/L Aspartate Amino Transf (AST/SGOT) 17 U/L Alanine Aminotransferase (ALT/SGPT) 23 U/L Total Bilirubin 0.4 MG/DL Sodium Level 138 MEQ/L Potassium Level 3.7 MEQ/L Chloride Level 109 MEQ/L Carbon Dioxide Level 20.2 MEQ/L Anion Gap 9 MEQ/L Estimat Glomerular Filtration Rate 59 ML/MIN Total Creatine Kinase 124 U/L Creatine Kinase MB 1.3 NG/ML Troponin I LESS THAN 0.02 NG/ML Urine Color LIGHT-YELLOW Urine Turbidity CLEAR Urine pH 5.5 Urine Specific [place] 1.006 Urine Protein NEG mg/dL Urine Glucose (UA) NEG mg/dL Urine Ketones NEG mg/dL Urine Occult Blood NEG Urine Nitrite NEG Urine Bilirubin NEG Urine Urobilinogen LESS THAN 2.0 MG/DL Urine Leukocyte Esterase NEG Urine Hyaline Casts 1 /lpf Microscopic Urinalysis Comment CULT NOT INDICATED MDM Medical Decision Making Medical Screen Exam Complete: Yes Emergency Medical Condition: Yes Differential Diagnosis PNA versus UTI versus metabolic derangement versus ACS versus ICH versus hypoglycemia versus arrhythmia versus other Narrative Course 56-year-old male with PMH of Parkinson's, schizophrenia, hyperlipidemia presents to the ED for evaluation after syncopal episode. According to EMS this episode was witnessed by others at his assisted. Patient states he became very dizzy, fell, striking his ear on the refrigerator. He is unsure if he lost consciousness. On presentation he denies headache, dizziness, vision changes, neck pain, chest pain, shortness of breath, abdominal pain, nausea, vomiting,dysuria, limitations to range of motion of the extremities. He endorses chronic tremor of the left hand. Vitals reviewed. Patient does have a strange affect but he is A&O x 4 and there is no focal neuro deficits. Chronic tremor of the left hand is noted. Chest CTAB. Abdomen soft, nontender. No lower extremity edema. No CVA tenderness. EKG rate 98, sinus rhythm. Incomplete RBBB. Normal axis. No acute ST changes. Reviewed by Dr. Russell. Cardiac enzymes negative 1. Chest x-ray normal per radiology read. No culture of the UA is indicated. WBC 18.8 with a left shift. Unsure of the source at this point. Discussed the patient with Dr. Russell. She recommends admission for syncope workup. Patient is agreeable to this plan. Dr. Fuentes agrees to accept the patient to the medicine service. Please see medicine notes for disposition. Iman Varghese May 13, 2017 20:12
[2017-05-13] MEDS ORDERED: SODIUM CHLORIDE 0.9% FLUSH 10 ML FLUSH IVF PRN (20:15)
[2017-05-13] MEDS ORDERED: TRIA0.1212 PO (20:32)
--- NOTE | 2017-05-13 20:35 | RADRPT ---
EXAM DATE/TIME: 05/13/2017 20:22 [facility] COMPARISON: CHEST SINGLE AP, March 23, 2017, 20:02. INDICATIONS : Chest pain. MEDICAL HISTORY : Parkinsons. SURGICAL HISTORY : None. ENCOUNTER: Initial ACUITY: 1 day PAIN SCORE: 0/10 LOCATION: Bilateral chest FINDINGS: A single view of the chest demonstrates the lungs to be symmetrically aerated without evidence of mas s, infiltrate or effusion. The cardiomediastinal contours are unremarkable. Osseous structures are intact. CONCLUSION: No acute disease. Fran Wyatt MD on May 13, 2017 at 20:34 Board Certified Radiologist. This report was verified electronically.
--- NOTE | 2017-05-13 20:40 | RADRPT ---
EXAM DATE/TIME: 05/13/2017 20:25 [facility] COMPARISON: CT BRAIN W/O CONTRAST, March 15, 2011, 14:23. INDICATIONS : Dizziness, fall. Hit left side of head. RADIATION DOSE: 38.93 CTDIvol (mGy) MEDICAL HISTORY : Parkinson's. SURGICAL HISTORY : None. ENCOUNTER: Initial ACUITY: 1 day PAIN SCALE: 3/10 LOCATION: cranial TECHNIQUE: Multiple contiguous axial images were obtained of the head. Using automated exposure control and adj ustment of the mA and/or kV according to patient size, radiation dose was kept as low as reasonably a chievable to obtain optimal diagnostic quality images. DICOM format image data is available electro nically for review and comparison. FINDINGS: CEREBRUM: The ventricles are normal for age. No evidence of midline shift, mass lesion, hemorrhage or acute in farction. No extra-axial fluid collections are seen. POSTERIOR FOSSA: The cerebellum and brainstem are intact. The 4th ventricle is midline. The cerebellopontine angle i s unremarkable. EXTRACRANIAL: The visualized portion of the orbits is intact. SKULL: The calvaria is intact. No evidence of skull fracture. CONCLUSION: Normal examination for a patient of this age. No significant change has occurred. Fran Wyatt MD on May 13, 2017 at 20:38 Board Certified Radiologist. This report was verified electronically.
[2017-05-13 20:47] LABS: AUTOMATED NEUTROPHIL # 15.8 TH/MM3 (1.8-7.7); BASOPHIL % 0.2 % (0.0-2.0); EOSINOPHIL # 0.1 TH/MM3 (0-0.4); EOSINOPHIL % 0.6 % (0.0-4.0); HEMATOCRIT 38.5 % (39.0-51.0); HEMO FLAGS DIFF FINAL; LYMPH % 9.5 % (9.0-44.0); LYMPHOCYTE # 1.8 TH/MM3 (1.0-4.8); MEAN CELL VOLUME 89.1 FL (80.0-100.0); MEAN CORPUSCULAR HEMOGLOBIN 29.9 PG (27.0-34.0); MEAN CORPUSCULAR HGB CONC 33.6 % (32.0-36.0); MONO % 5.4 % (0.0-8.0); NEUT % 84.3 % (16.0-70.0); PLATELET COUNT 298 TH/MM3 (150-450); RED BLOOD COUNT 4.32 MIL/MM3 (4.50-5.90); RED CELL DISTRIBUTION WIDTH 14.6 % (11.6-17.2); WHITE BLOOD COUNT 18.8 TH/MM3 (4.0-11.0)
[2017-05-13 21:12] LABS: APTT (PATIENT) 32.2 SEC (24.3-30.1); PROTHROMBIN TIME - PATIENT 10.8 SEC (9.8-11.6)
--- NOTE | 2017-05-13 21:18 | PD ---
Physical Exam Narrative I, Dr. Russell, have reviewed the advance practice practitioner's documentation and am in agreement, met with the patient face to face, made the diagnosis, and the medical decision making was done by me. *My assessment and Findings: Syncope vs. sepsis vs. dehydration vs. arrhythmia 56yo M with episode of syncope today. States he felt dizzy all of a sudden and passed out. Has an abrasion in left ear. He states he does not know how long he was out for. Denies any fever, cough, chest pain, sob, n/v, abdominal pain, focal weakness or numbness. Labs reviewed, leukocytosis at 18.8. Troponin negative. UA negative. CXR negative. CT brain negative. Unsure of source of leukocytosis. May be stress related, no source of infection or fever. Will admit for syncope work up. Accepted to Dr. Fuentes's service. Data Data Last Documented VS Vital Signs Date Time Temp Pulse Resp B/P (MAP) Pulse Ox O2 Delivery O2 Flow Rate FiO2 05/13/17 21:44 90 18 143/88 (106) 99 Room Air 05/13/17 20:02 98.7 Orders Orders Electrocardiogram (05/13/17 20:06) Complete Blood Count With Diff (05/13/17 20:06) Comprehensive Metabolic Panel (05/13/17 20:06) Magnesium (Mg) (05/13/17 20:06) Ckmb (Isoenzyme) Profile (05/13/17 20:06) Troponin I (05/13/17 20:06) Act Partial Throm Time (Ptt) (05/13/17 20:06) Prothrombin Time / Inr (Pt) (05/13/17 20:06) Urinalysis - C+S If Indicated (05/13/17 20:06) Chest, Single Ap (05/13/17 20:06) Ct Brain W/O Iv Contrast(Rout) (05/13/17 20:06) Ecg Monitoring (05/13/17 20:06) Iv Access Insert/Monitor (05/13/17 20:06) Oximetry (05/13/17 20:06) Sodium Chloride 0.9% Flush (Ns Flush) (05/13/17 20:15) CKMB (05/13/17 20:15) CKMB% (05/13/17 20:15) Acetaminophen (Tylenol) (05/13/17 21:45) Admit Order (Ed Use Only) (05/13/17 22:01) Labs Laboratory Tests Test 05/13/17 20:15 05/13/17 20:45 White Blood Count 18.8 TH/MM3 Red Blood Count 4.32 MIL/MM3 Hemoglobin 12.9 GM/DL Hematocrit 38.5 % Mean Corpuscular Volume 89.1 FL Mean Corpuscular Hemoglobin 29.9 PG Mean Corpuscular Hemoglobin Concent 33.6 % Red Cell Distribution Width 14.6 % Platelet Count 298 TH/MM3 Mean Platelet Volume 6.8 FL Neutrophils (%) (Auto) 84.3 % Lymphocytes (%) (Auto) 9.5 % Monocytes (%) (Auto) 5.4 % Eosinophils (%) (Auto) 0.6 % Basophils (%) (Auto) 0.2 % Neutrophils # (Auto) 15.8 TH/MM3 Lymphocytes # (Auto) 1.8 TH/MM3 Monocytes # (Auto) 1.0 TH/MM3 Eosinophils # (Auto) 0.1 TH/MM3 Basophils # (Auto) 0.0 TH/MM3 CBC Comment DIFF FINAL Differential Comment Prothrombin Time 10.8 SEC Prothromb Time International Ratio 1.0 RATIO Activated Partial Thromboplast Time 32.2 SEC Blood Urea Nitrogen 15 MG/DL Creatinine 1.27 MG/DL Random Glucose 124 MG/DL Total Protein 6.8 GM/DL Albumin 3.7 GM/DL Calcium Level 8.0 MG/DL Magnesium Level 2.0 MG/DL Alkaline Phosphatase 98 U/L Aspartate Amino Transf (AST/SGOT) 17 U/L Alanine Aminotransferase (ALT/SGPT) 23 U/L Total Bilirubin 0.4 MG/DL Sodium Level 138 MEQ/L Potassium Level 3.7 MEQ/L Chloride Level 109 MEQ/L Carbon Dioxide Level 20.2 MEQ/L Anion Gap 9 MEQ/L Estimat Glomerular Filtration Rate 59 ML/MIN Total Creatine Kinase 124 U/L Creatine Kinase MB 1.3 NG/ML Troponin I LESS THAN 0.02 NG/ML Urine Color LIGHT-YELLOW Urine Turbidity CLEAR Urine pH 5.5 Urine Specific [place] 1.006 Urine Protein NEG mg/dL Urine Glucose (UA) NEG mg/dL Urine Ketones NEG mg/dL Urine Occult Blood NEG Urine Nitrite NEG Urine Bilirubin NEG Urine Urobilinogen LESS THAN 2.0 MG/DL Urine Leukocyte Esterase NEG Urine Hyaline Casts 1 /lpf Microscopic Urinalysis Comment CULT NOT INDICATED MDM Supervised Visit with SONIA: Yes Interpretation(s) EKG: NSR 98bpm. Normal axis. No ST segment elevation or depression. QTc 408ms. Narrow QRS. Diagnosis Primary Impression: Syncope Qualified Codes: R55 - Syncope and collapse Admitting Information Admitting Physician Requests: Gabrielle Olguin DO May 13, 2017 21:18
[2017-05-13 21:22] LABS: BLOOD, URINE NEG (NEG); GLUCOSE,URINE NEG (NEG); HYALINE CAST, URINE 1 /lpf (RARE); KETONE, URINE NEG (NEG); NITRITE,URINE NEG (NEG); PH, URINE 5.5 (5.0-8.5); URINE COLOR LIGHT-YELLOW (YELLW/STRAW)
[2017-05-13 21:23] LABS: ALT (GPT) 23 U/L (12-78); ANION GAP 9 MEQ/L (5-15); BICARBONATE 20.2 MEQ/L (21.0-32.0); BLOOD UREA NITROGEN 15 MG/DL (7-18); CHLORIDE 109 MEQ/L (98-107); GLOMERULAR FILTRATION RATE 59 ML/MIN (>89); POTASSIUM 3.7 MEQ/L (3.5-5.1); SODIUM (NA) 138 MEQ/L (136-145)
[2017-05-13 21:27] LABS: ALKALINE PHOSPHATASE 98 U/L (45-117); AST (GOT) 17 U/L (15-37); CREATINE KINASE 124 U/L (39-308); TOTAL BILIRUBIN ADULT 0.4 MG/DL (0.2-1.0)
[2017-05-13 21:28] LABS: COMMENT (UR) CULT NOT INDICATED; CULTURE IF INDICATED CULT NOT INDICATED
[2017-05-13 21:39] LABS: CKMB 1.3 NG/ML (0.5-3.6)
[2017-05-13 21:44] VITALS: BP 143/88; PULSE 90; RESP 18; O2SAT 99
[2017-05-13] MEDS ORDERED: ACETAMINOPHEN 500 MG CPLT PO ONE (21:45)
[2017-05-13] MEDS ORDERED: SODIUM CHLORIDE 0.9% FLUSH 10 ML FLUSH IV FLUSH PRN (22:15)
[2017-05-13] MEDS ORDERED: NALOXONE HCL 0.4 MG/ML AMP IV PRN (22:15)
--- NOTE | 2017-05-13 23:42 | RADRPT ---
EXAM DATE/TIME: 05/13/2017 22:53 [facility] COMPARISON: No previous studies available for comparison. INDICATIONS : Syncope. MEDICAL HISTORY : COPD. Parkinson's disease. schizophrenia. scabies. SURGICAL HISTORY : None. ENCOUNTER: Initial ACUITY: 1 day PAIN SCORE: 0/10 LOCATION: Bilateral neck PEAK SYSTOLIC VELOCITIES (cm/sec): ICA/CCA RATIO: Right: 0.9 Left: 0.7 ICA: Right: 68 Left: 85 CCA: Right: 93 Left: 60 ECA: Right: 80 Left: 68 VERTEBRAL: Right: 36 antegrade Left: 38 antegrade Elevated flow velocities and ICA/CCA ratios have been found to correlate with increased degrees of vessel stenosis, calculated as percentage of diameter relative to a normal segment of distal ICA/CCA FINDINGS: RIGHT CAROTID: No significant stenosis is visualized. There is mild calcified and noncalcified plaque in the caroti d bulb. The waveforms are within normal limits. LEFT CAROTID: No significant stenosis is visualized. There is mild plaque in the carotid bulb. The waveforms are w ithin normal limits. VERTEBRAL ARTERIES: Antegrade flow is seen in both vertebral arteries. MISCELLANEOUS: None. CONCLUSION: 1. Mild atherosclerotic disease within the carotid bulbs bilaterally. However, no significant stenosi s is present within either internal carotid artery (less than 50% stenosis). 2. There is antegrade flow in both vertebral arteries. Hector Oliveros MD on May 13, 2017 at 23:39 Board Certified Radiologist. This report was verified electronically.
[2017-05-14] VITALS (11 sets, daily range): BP systolic 113–153; BP diastolic 76–91; PULSE 66–104; RESP 18–22; TEMP 97.4–98; O2SAT 95–100
[2017-05-14 02:32] LABS: AUTOMATED NEUTROPHIL # 10.5 TH/MM3 (1.8-7.7); BASOPHIL # 0.1 TH/MM3 (0-0.2); BASOPHIL % 0.9 % (0.0-2.0); EOSINOPHIL # 0.1 TH/MM3 (0-0.4); EOSINOPHIL % 0.9 % (0.0-4.0); HEMATOCRIT 39.7 % (39.0-51.0); HEMO FLAGS DIFF FINAL; LYMPH % 23.4 % (9.0-44.0); LYMPHOCYTE # 3.5 TH/MM3 (1.0-4.8); MEAN CELL VOLUME 88.3 FL (80.0-100.0); MEAN CORPUSCULAR HEMOGLOBIN 30.3 PG (27.0-34.0); MEAN CORPUSCULAR HGB CONC 34.3 % (32.0-36.0); MONO % 4.7 % (0.0-8.0); NEUT % 70.1 % (16.0-70.0); PLATELET COUNT 290 TH/MM3 (150-450); RED CELL DISTRIBUTION WIDTH 14.4 % (11.6-17.2)
[2017-05-14 02:53] LABS: CREATINE KINASE 172 U/L (39-308)
[2017-05-14 02:57] LABS: BICARBONATE 21.5 MEQ/L (21.0-32.0); POTASSIUM 3.8 MEQ/L (3.5-5.1)
--- NOTE | 2017-05-14 03:54 | HHI.HP ---
[facility] Ham Louise M[facility] Admission Diagnosis syncope, leukocytosis Diagnoses: Chief Complaint: syncope Travel History International Travel<30 Days: No Contact w/Intl Traveler <30 Da: No Traveled to Known Affected Are: No History of Present Illness Written by PRINCESS Zarate acting as scribe for [Alfredo] on 05/14/17 at 03: 48. 56 y/o male with a history of Parkinson's, paranoid schizophrenia with extrapyramidal symptoms from treatment, COPD, and HLD presented to the ED after a syncopal episode at home. Patient states he felt dizzy and passed out hitting his left ear on the fridge. He denies hitting his head. He denies any chest pain, sob, fever, chills, nausea or vomiting. He is noted to be going back and forth to the bathroom for urination, he denies diarrhea. Patient lives in [place] at [facility]. Review of Systems Except as stated in HPI: all other systems reviewed are Neg Past Family Social History Past Medical History Parkinson's Schizophrenia COPD HLD HTN Past Surgical History Patient denies any surgical history Reported Medications Reported Meds & Active Scripts Active Reported Triazolam 0.125 Mg Tab 0.25 Mg PO HS Proair Hfa 8.5 GM Inh (Albuterol Sulfate) 90 Mcg/Act Aer 2 Puff INH Q6H PRN 108 mcg/actuation Pantoprazole (Pantoprazole Sodium) 40 Mg Tab 40 Mg PO DAILY Lisinopril 10 Mg Tab 10 Mg PO DAILY Invega Sustenna Inj (Paliperidone Palmitate) 234 Mg/1.5 Ml Inj 234 Mg IM Q28D Clozapine 100 Mg Tab 200 Mg PO HS Benztropine (Benztropine Mesylate) 0.5 Mg Tab 1 Mg PO BID Anoro Ellipta Inh (Umeclidinium/Vilanterol) 62.5-25 Mcg/Act Aero 1 Puff INH DAILY Tylenol (Acetaminophen) 325 Mg Tab 325 Mg PO BID Allergies: Coded Allergies: No Known Allergies (Verified , 05/13/17) Active Ordered Medications Current Medications Medications (Trade) Dose Ordered Sig/Bruno Route Start Time Stop Time Status Last Admin (NS Flush) 2 ml UNSCH PRN IVF 05/13/17 20:15 (NS Flush) 2 ml UNSCH PRN IV FLUSH 05/13/17 22:15 (NS Flush) 2 ml BID IV FLUSH 05/14/17 09:00 (Narcan Inj) 0.4 mg UNSCH PRN IV 05/13/17 22:15 Family History Patient denies any family history Social History Patient lives in a [place] at [facility] Denies Tobacco, alcohol or illicit drug use Physical Exam Vital Signs Vital Signs Date Time Temp Pulse Resp B/P (MAP) Pulse Ox O2 Delivery O2 Flow Rate FiO2 05/14/17 03:45 84 20 145/87 (106) 97 05/14/17 00:36 97.4 79 20 153/91 (111) 100 05/14/17 00:05 05/13/17 21:44 90 18 143/88 (106) 99 Room Air 05/13/17 20:02 98.7 108 16 141/83 (102) 97 Physical Exam GENERAL: This is a well-nourished, well-developed patient, in no apparent distress. SKIN: Right ear lac with dried blood HEAD: Atraumatic. Normocephalic. EYES: Pupils equal round and reactive. ENT: Nose without bleeding, purulent drainage or septal hematoma. Airway patent. NECK: Trachea midline. No JVD or lymphadenopathy. CARDIOVASCULAR: Regular rate and rhythm without murmurs, gallops, or rubs. RESPIRATORY: Clear to auscultation. Breath sounds equal bilaterally. No wheezes , rales, or rhonchi. GASTROINTESTINAL: Abdomen soft, non-tender, nondistended. . MUSCULOSKELETAL: Extremities without clubbing, cyanosis, or edema. No joint tenderness, effusion, or edema noted. No calf tenderness. NEUROLOGICAL: Awake and alert. extrapyramidal symptoms noted. Motor and sensory grossly within normal limits. Normal speech. Laboratory Laboratory Tests Test 05/13/17 20:15 05/13/17 20:45 05/14/17 02:17 White Blood Count 18.8 15.0 Red Blood Count 4.32 4.50 Hemoglobin 12.9 13.6 Hematocrit 38.5 39.7 Mean Corpuscular Volume 89.1 88.3 Mean Corpuscular Hemoglobin 29.9 30.3 Mean Corpuscular Hemoglobin Concent 33.6 34.3 Red Cell Distribution Width 14.6 14.4 Platelet Count 298 290 Mean Platelet Volume 6.8 7.0 Neutrophils (%) (Auto) 84.3 70.1 Lymphocytes (%) (Auto) 9.5 23.4 Monocytes (%) (Auto) 5.4 4.7 Eosinophils (%) (Auto) 0.6 0.9 Basophils (%) (Auto) 0.2 0.9 Neutrophils # (Auto) 15.8 10.5 Lymphocytes # (Auto) 1.8 3.5 Monocytes # (Auto) 1.0 0.7 Eosinophils # (Auto) 0.1 0.1 Basophils # (Auto) 0.0 0.1 CBC Comment DIFF FINAL DIFF FINAL Differential Comment Prothrombin Time 10.8 Prothromb Time International Ratio 1.0 Activated Partial Thromboplast Time 32.2 Blood Urea Nitrogen 15 18 Creatinine 1.27 1.09 Random Glucose 124 99 Total Protein 6.8 Albumin 3.7 Calcium Level 8.0 9.3 Magnesium Level 2.0 Alkaline Phosphatase 98 Aspartate Amino Transf (AST/SGOT) 17 Alanine Aminotransferase (ALT/SGPT) 23 Total Bilirubin 0.4 Sodium Level 138 140 Potassium Level 3.7 3.8 Chloride Level 109 111 Carbon Dioxide Level 20.2 21.5 Anion Gap 9 8 Estimat Glomerular Filtration Rate 59 70 Total Creatine Kinase 124 172 Creatine Kinase MB 1.3 Troponin I LESS THAN 0.02 LESS THAN 0.02 Urine Color LIGHT-YELLOW Urine Turbidity CLEAR Urine pH 5.5 Urine Specific [place] 1.006 Urine Protein NEG Urine Glucose (UA) NEG Urine Ketones NEG Urine Occult Blood NEG Urine Nitrite NEG Urine Bilirubin NEG Urine Urobilinogen LESS THAN 2.0 Urine Leukocyte Esterase NEG Urine Hyaline Casts 1 Microscopic Urinalysis Comment CULT NOT INDICATED Result Diagram: 05/14/1721605/14/17216 Imaging Last Impressions Head CT 05/13/172005 Signed Impressions: Service Date/Time: Saturday, May 13, 2017 20:25 - CONCLUSION: Normal examination for a patient of this age. No significant change has occurred. Fran Wyatt MD Chest X-Ray 05/13/172005 Signed Impressions: Service Date/Time: Saturday, May 13, 2017 20:22 - CONCLUSION: No acute disease. Fran Wyatt MD Carotid Artery Ultrasound 05/13/17 0000 Signed Impressions: Service Date/Time: Saturday, May 13, 2017 22:53 - CONCLUSION: 1. Mild atherosclerotic disease within the carotid bulbs bilaterally. However, no significant stenosis is present within either internal carotid artery (less than 50%% stenosis). 2. There is antegrade flow in both vertebral arteries. MD Marcy Monique VTE Risk Assessment Caprini VTE Risk Assessment: Mod/High Risk (score >= 2) Caprini Risk Assessment Model Point Value = 1 Point Value = 2 Point Value = 3 Point Value = 5 Age 41-60 Minor surgery BMI > 25 kg/m2 Swollen legs Varicose veins or History of unexplained or recurrent spontaneous Oral contraceptives or hormone replacement Sepsis (< 1 month) Serious lung disease, including pneumonia (< 1 month) Abnormal pulmonary function Acute myocardial infarction Congestive heart failure (< 1 month) History of inflammatory bowel disease Medical patient at bed rest Age 61-74 Arthroscopic surgery Major open surgery (> 45 min) Laparoscopic surgery (> 45 min) Malignancy Confined to bed (> 72 hours) Immobilizing plaster cast Central venous access Age >= 75 History of VTE Family history of VTE Factor V Leiden Prothrombin [id number] Lupus anticoagulant Anticardiolipin antibodies Elevated serum homocysteine Heparin-induced thrombocytopenia Other congenital or acquired thrombophilia Stroke (< 1 month) Elective arthroplasty Hip, pelvis, or leg fracture Acute spinal cord injury (< 1 month) Prophylaxis Regimen Total Risk Factor Score Risk Level Prophylaxis Regimen 0-1 Low Early ambulation 2 Moderate Order ONE of the following: *Sequential Compression Device (SCD) *Heparin 5000 units SQ BID 3-4 Higher Order ONE of the following medications: *Heparin 5000 units SQ TID *Enoxaparin/Lovenox 40 mg SQ daily (WT < 150 kg, CrCl > 30 mL/min) *Enoxaparin/Lovenox 30 mg SQ daily (WT < 150 kg, CrCl > 10-29 mL/min) *Enoxaparin/Lovenox 30 mg SQ BID (WT < 150 kg, CrCl > 30 mL/min) AND/OR *Sequential Compression Device (SCD) 5 or more Highest Order ONE of the following medications: *Heparin 5000 units SQ TID (Preferred with Epidurals) *Enoxaparin/Lovenox 40 mg SQ daily (WT < 150 kg, CrCl > 30 mL/min) *Enoxaparin/Lovenox 30 mg SQ daily (WT < 150 kg, CrCl > 10-29 mL/min) *Enoxaparin/Lovenox 30 mg SQ BID (WT < 150 kg, CrCl > 30 mL/min) AND *Sequential Compression Device (SCD) Assessment and Plan Problem List: (1) Syncopal episodes ICD Code: R55 - Syncope and collapse Status: Acute (2) Schizophrenia ICD Code: F20.9 - Schizophrenia, unspecified Status: Chronic (3) Hypertension ICD Code: I10 - Essential (primary) hypertension Status: Chronic Assessment and Plan 56 y/o male with a history of Parkinson's, paranoid schizophrenia with extrapyramidal symptoms from treatment, COPD, HTN, and HLD presented to the ED after a syncopal episode at home. Syncope, acute Head ct reviewed and is unremarkable -2d echo ordered -US carotids ordered, reviewed and shows mild atherosclerotic disease within the carotid bulbs bilaterally. no significant stenosis. -Orthostatics VS Leukocytosis, unknown source, wbc 18.8-->15.0, no fevers UA negative Chest x ray reviewed and shows no acute disease -Trend CBC -Hold on antibiotics for now -Stool studies ordered COPD, chronic -Duonebs scheduled and prn HTN, chronic -will reorder home medications Paranoid Schizophrenia, chronic -Will reorder home medications DVT prophylaxis: SCDs This note was transcribed by scribe [Mila Lenz]. I, Dr. Che Fuentes personally performed the history, physical exam, and medical decision making; and confirmed the accuracy of the information in the transcribed note. Authenticated by Dr. Che uFentes on05/14/17 at 03:48. Discussed Condition With Patient and ED physician Problem Qualifiers (1) Syncopal episodes: Qualified Codes: R55 - Syncope and collapse Mila Lenz May 14, 2017 03:54 Che Fuentes MD May 14, 2017 05:49
[2017-05-14] MEDS ORDERED: RESP: ALBUTEROL 2.5 MG/IPRATROPIUM 0.5 MG NEB (PRN) NEB (04:15)
[2017-05-14] MEDS: RESP: ALBUTEROL 2.5 MG/IPRATROPIUM 0.5 MG NEB (SCH) NEB ×3 (08:37→21:31)
[2017-05-14] MEDS ORDERED: SODIUM CHLORIDE 0.9% FLUSH 10 ML FLUSH IV FLUSH SCH (09:00)
[2017-05-14] MEDS ORDERED: BENZTROPINE MESYLATE 1 MG TAB PO SCH (09:00)
[2017-05-14] MEDS ORDERED: PANTOPRAZOLE SOD 40 MG DELAYED RELEASE TAB PO SCH (09:00)
[2017-05-14] MEDS ORDERED: LISINOPRIL 10 MG TAB PO SCH (09:00)
--- NOTE | 2017-05-14 11:49 | HHI.PR ---
Subjective Remarks Follow-up for syncope. The patient states that he fell. He does admit that he passed out. He denies having any symptoms prior to passing out or currently. He denies any chest pain, shortness of breath, fever, chills, nausea, vomiting, diarrhea, cough, lightheadedness, dizziness. Objective Vitals Vital Signs Date Time Temp Pulse Resp B/P (MAP) Pulse Ox O2 Delivery O2 Flow Rate FiO2 05/14/17 10:58 97.9 92 22 129/80 (96) 98 05/14/17 09:07 97.7 80 20 127/80 (96) 100 121/82 (95) 125/82 (96) 05/14/17 04:11 97 05/14/17 04:02 84 05/14/17 03:45 84 20 145/87 (106) 97 05/14/17 00:44 66 05/14/17 00:36 97.4 79 20 153/91 (111) 100 05/14/17 00:05 05/13/17 21:44 90 18 143/88 (106) 99 Room Air 05/13/17 20:02 98.7 108 16 141/83 (102) 97 I/O 05/13/17 05/13/17 05/13/17 05/14/17 05/14/17 05/14/17 07:00 15:00 23:00 07:00 15:00 23:00 Output Total 700 ml Balance -700 ml Output Urine Total 700 ml Result Diagram: 05/14/1721605/14/177 Imaging Last Impressions Head CT 05/13/172005 Signed Impressions: Service Date/Time: Saturday, May 13, 2017 20:25 - CONCLUSION: Normal examination for a patient of this age. No significant change has occurred. Fran Wyatt MD Chest X-Ray 05/13/172005 Signed Impressions: Service Date/Time: Saturday, May 13, 2017 20:22 - CONCLUSION: No acute disease. Fran Wyatt MD Carotid Artery Ultrasound 05/13/17 Signed Impressions: Service Date/Time: Saturday, May 13, 2017 22:53 - CONCLUSION: 1. Mild atherosclerotic disease within the carotid bulbs bilaterally. However, no significant stenosis is present within either internal carotid artery (less than 50%% stenosis). 2. There is antegrade flow in both vertebral arteries. Hector Oliveros MD Objective Remarks GENERAL: Well-developed well-nourished. In no acute distress. SKIN: Warm and dry. Left ear pinna with dried blood. HEENT: Normocephalic. Pupils equal and round. Mucous membranes pink and moist. CARDIOVASCULAR: Regular rate and rhythm. No murmur appreciated. RESPIRATORY: No accessory muscle use. Clear to auscultation. Breath sounds equal bilaterally. GASTROINTESTINAL: Abdomen soft, non-tender, nondistended. Bowel sounds x4. MUSCULOSKELETAL: No obvious deformities. No clubbing or cyanosis. No edema. NEUROLOGICAL: Awake and alert. Moves upper and lower extremities spontaneously. Normal speech. Upper extremity pill rolling tremors noted. PSYCHIATRIC: Calm mood and flat affect; insight and judgment fair. A/P Problem List: (1) Syncopal episodes ICD Code: R55 - Syncope and collapse Status: Acute (2) Schizophrenia ICD Code: F20.9 - Schizophrenia, unspecified Status: Chronic (3) Hypertension ICD Code: I10 - Essential (primary) hypertension Status: Chronic Assessment and Plan 56 y/o male with a history of Parkinson's, paranoid schizophrenia with extrapyramidal symptoms from treatment, COPD, HTN, and HLD presented to the ED after a syncopal episode at home. Syncope: Possibly vasovagal secondary to dehydration. Reviewed: Head CT unremarkable. Carotid ultrasound shows mild atherosclerotic disease within the carotid bulbs bilaterally, no significant stenosis. Not orthostatic. Telemetry overnight without any significant arrhythmia. Labs with signs of dehydration. -2d echo ordered -PT consulted, recommends no restrictions -Telemetry monitoring Leukocytosis, no signs of infection, possibly reactive secondary to fall Reviewed: WBC 18.8-->15.0, no fevers. UA negative. Chest x ray shows no acute disease. -Monitor -Stool studies ordered if diarrhea COLEEN: Creatinine 1.27, previously 0.83 on 03/25/17. Creatinine improved to 1.09 overnight. -IVF COPD, chronic, stable -Duonebs scheduled and prn HTN, chronic, stable -Continue home medications Paranoid Schizophrenia with EPS, chronic -Continue home medications DVT prophylaxis: SCDs Discharge Planning Follow-up results of echocardiogram, and if unremarkable, discharge planning. Case management consulted for assistance with discharge back to [facility]. 1600 the patient is clinically improved and without complaints today. Echocardiogram essentially unremarkable. Repeat labs today are improved, we'll repeat his outpatient and follow-up with PCP. Telemetry remains essentially unremarkable, will place holter monitor and recommend follow-up with PCP for results. Discharge back to [facility]. Problem Qualifiers (1) Syncopal episodes: Qualified Codes: R55 - Syncope and collapse (2) Hypertension: Qualified Codes: I10 - Essential (primary) hypertension Rinku Johnson May 14, 2017 11:49
[2017-05-14] MEDS ORDERED: SODIUM CHLOR 0.9% 1000 ML INJ 1,000 ML IV SCH (12:00)
[2017-05-14 12:31] LABS: CREATINE KINASE 204 U/L (39-308)
--- NOTE | 2017-05-14 15:14 | ECHRPT ---
Indication: CONCLUSIONS Technically difficult echo. In limited views, the left ventricular systolic function appears probably normal with an EF of 55-60 %. Trace mitral valve regurgitation. There is trace tricuspid valve regurgitation. BP: 145 / 87 HR: 84 Rhythm: Sinus MEASUREMENTS (Male / Female) Normal Values Technical Quality:Technically difficult study 2D ECHO LV Diastolic Diameter PLAX 4.3 cm 4.2 - 5.9 / 3.9 - 5.3 cm LV Systolic Diameter PLAX 3.6 cm IVS Diastolic Thickness 0.9 cm 0.6 - 1.0 / 0.6 - 0.9 cm LVPW Diastolic Thickness 0.8 cm 0.6 - 1.0 / 0.6 - 0.9 cm LV Relative Wall Thickness 0.4 RV Internal Dim ED PLAX 2.0 cm LA Systolic Diameter LX 3.7 cm 3.0 - 4.0 / 2.7 - 3.8 cm DOPPLER Mitral E Point Velocity 79.0 cm/s Mitral A Point Velocity 111.0 cm/s Mitral E to A Ratio 0.7 TR Peak Velocity 223.0 cm/s TR Peak Gradient 19.9 mmHg FINDINGS LEFT VENTRICLE Wall thickness is normal. In limited views, the left ventricular systolic function appears probably normal with an EF of 55-60 % There was limited left ventricular wall motion assessment due to poor endocardial visualization. RIGHT VENTRICLE The right ventricle was not well visualized. LEFT ATRIUM The left atrial size is normal. RIGHT ATRIUM The right atrium is not well visualized. ATRIAL SEPTUM The interatrial septum not well visualized. AORTA The aortic root and proximal ascending aorta are not well visualized. MITRAL VALVE Grossly normal mitral valve. Trace mitral valve regurgitation. No mitral valve stenosis. AORTIC VALVE The aortic valve is not well visualized. No aortic valve regurgitation. TRICUSPID VALVE Grossly normal tricuspid valve. There is trace tricuspid valve regurgitation. No tricuspid valve stenosis. PULMONARY VALVE The pulmonary valve is not well visualized. VESSELS The inferior vena cava is normal in size. PERICARDIUM No pericardial effusion. OTHER FINDINGS Remi Montes DO Edited by: ciValue CV [employer] Operator (Electronically Signed) Final Date:14 May 2017 11:30 Amended: 14 May 2017 15:12
--- NOTE | 2017-05-14 17:13 | EKG ---
Date Performed: 05/13/2017 Time Performed: 20:14:10 PTAGE: 56 years EKG: Sinus rhythm INCOMPLETE RIGHT BUNDLE BRANCH BLOCK Since previous tracing, no significant change noted BORDERLINE ECG PREVIOUS TRACING : 03/23/2017 20.40 DOCTOR: Shelly Leon Interpretating Date/Time 05/14/2017 17:06:38
[2017-05-14] MEDS ORDERED: cloZAPine 100 MG TAB PO SCH (21:00)
[2017-05-14] MEDS ORDERED: PATIENT OWN NARCOTIC MED 1 PO SCH (21:00)
--- NOTE | 2017-05-17 10:10 | HM ---
Date Performed: 05/14/2017 Time Performed: 19:08:00 HOOKUP DATE: 05/14/17 07:08:00 PM Wed ANALYSIS START TIME: 05/14/2017 7:13:00 PM ANALYSIS END TIME: 05/15/2017 7:17:00 PM PATIENT AGE: 56 PATIENT HEIGHT PATIENT WEIGHT DRUG LIST PATIENT DIAGNOSIS: Syncope TEST NARRATIVE: The patient's average heart rate was 95 BPM. Heart rates greater than 120 B PM were noted 11% of the time. No episodes of bradycardia were noted. No pauses exceeding 2.0 se conds were noted. 9 ventricular ectopics, which represented < 1% of the total beat count, were no connie. The highest ventricular ectopic frequency occurred from 12:00 PM to 01:00 PM Kristen. During this time 3 VE(s) occurred. Ventricular ectopics were observed as 7 isolated beat(s) and as 1 couplet(s). No runs were noted. 1 supraventricular ectopics, which represented < 1% of the total beat count , were noted. The highest supraventricular ectopic frequency occurred from 10:00 PM to 11:00 PM Wed. During this time 1 SVE(s) occurred. No episodes of ST depression (defined as -1.0 mm or more) w ere noted in channel 1. No episodes of ST depression (defined as -1.0 mm or more) were noted in [facility] 2. No episodes of ST depression (defined as -1.0 mm or more) were noted in channel 3. TEST INTERPRETATION: Sinus rhythm AND PROBABLE SINUS TACHYCARDIA (UP TO HR 138 BPM) RARE PVCs IN SINGLETS AND COUPLETS Signed by : Alin Gu
== END 2017-05-15 00:01 ==
LOC: NEPC 18:47 → NEDA 22:03 → NEPGCP 05-14 00:04
PROVIDERS: ADMIT Family Medicine; ATTEND Family Medicine
DX: R55 Syncope and collapse (principal); I10 Essential (primary) hypertension; D72.829 Elevated white blood cell count, unspecified; R94.31 Abnormal electrocardiogram [ECG] [EKG]; I45.10 Unspecified right bundle-branch block; F20.0 Paranoid schizophrenia; G20 Parkinson's disease; E78.5 Hyperlipidemia, unspecified; J44.9 Chronic obstructive pulmonary disease, unspecified; Z72.0 Tobacco use
CPT/HCPCS: 70450; 71010; 80048; 80053; 81001; 82550; 82552; 83735; 84484; 85025; 85610; 85730; 93005; 93225; 93226; 93306; 93880; 94664; 96360; 97161; 99285; G0378; G8987; G8988; J7030

== ENCOUNTER 2017-12-08 13:08 | Emergency (ER) | payer MEDICAID, MEDICARE ==
[~2017-12-08 13:08] MED LIST changes: -AMOX875T PO; -AZIT250T3 PO; -PRED20 PO; +[UNRECOGNIZED DRUG - CODE] PO
[2017-12-08 14:01] VITALS: BP 128/86; PULSE 92; RESP 16; TEMP 98.8; O2SAT 98
[2017-12-08] MEDS ORDERED: BACT800T5 PO (15:28)
--- NOTE | 2017-12-08 15:32 | PD ---
HPI Chief Complaint: Skin Problem Time Seen by Provider: 15:11 Travel History International Travel<30 days: No Contact w/Intl Traveler<30days: No Traveled to known affect area: No History of Present Illness HPI 57-year-old male presents to the emergency room for evaluation of an abscess to his left buttocks that he first noticed 3 days ago. Patient states it is extremely painful to sit on. He has not taken anything or applied anything to the area. No difficulty with bowel movements. No fever, chills, nausea, vomiting. PFSH Past Medical History COPD: Yes Diminished Hearing: No Musculoskeletal: Yes (scabies) Parkinson's Disease: Yes Schizophrenia: Yes Social History Alcohol Use: Yes Tobacco Use: Yes Substance Use: Yes Allergies-Medications (Allergen,Severity, Reaction): Coded Allergies: No Known Allergies (Verified Adverse Reaction, Unknown, 12/08/17) Reported Meds & Prescriptions Reported Meds & Active Scripts Active Bactrim DS (Sulfamethoxazole-Trimethoprim) 800-160 Mg Tab 1 Tab PO BID Reported Triazolam 0.125 Mg Tab 0.25 Mg PO HS Proair Hfa 8.5 GM Inh (Albuterol Sulfate) 90 Mcg/Act Aer 2 Puff INH Q6H PRN 108 mcg/actuation Pantoprazole (Pantoprazole Sodium) 40 Mg Tab 40 Mg PO DAILY Lisinopril 10 Mg Tab 10 Mg PO DAILY Invega Sustenna Inj (Paliperidone Palmitate) 234 Mg/1.5 Ml Inj 234 Mg IM Q28D Clozapine 100 Mg Tab 200 Mg PO HS Benztropine (Benztropine Mesylate) 0.5 Mg Tab 1 Mg PO BID Anoro Ellipta Inh (Umeclidinium/Vilanterol) 62.5-25 Mcg/Act Aero 1 Puff INH DAILY Tylenol (Acetaminophen) 325 Mg Tab 325 Mg PO BID Review of Systems Except as stated in HPI: all other systems reviewed are Neg Physical Exam Narrative GENERAL: Well-nourished, well-developed male in no acute distress. Afebrile. Ambulatory. SKIN: Focused skin assessment warm/dry. There is an indurated area in the left buttock which measures about 4 cm in diameter. It is fluctuant but there is no pointing or drainage. There is a zone of inflammation around it but no lymphangitis. HEAD: Normocephalic. EYES: No scleral icterus. No injection or drainage. NECK: Supple, trachea midline. No JVD or lymphadenopathy. CARDIOVASCULAR: Regular rate and rhythm without murmurs, gallops, or rubs. RESPIRATORY: Breath sounds equal bilaterally. No accessory muscle use. PSYCHIATRIC: No delusional thought processes. No hallucinations. Data Data Last Documented VS Vital Signs Date Time Temp Pulse Resp B/P (MAP) Pulse Ox O2 Delivery O2 Flow Rate FiO2 12/08/17 14:01 98.8 92 16 128/86 (100) 98 Orders Orders Ed Discharge Order (12/08/17 15:32) [facility] Medical Decision Making Medical Screen Exam Complete: Yes Emergency Medical Condition: Yes Medical Record Reviewed: Yes Differential Diagnosis Abscess, folliculitis, cellulitis Narrative Course 57-year-old male presents to the emergency room for evaluation of an abscess to his left buttocks that started 3 days ago. No systemic signs of infection. Abscess was drained, see procedure note for details. Patient discharged with Bactrim and told to return for worsening symptoms. He understands and agrees to plan. Procedures Procedure Narrative INCISION AND DRAINAGE OF ABSCESS: The area was prepped and was sterilely draped. A subcutaneous wheal of 1% lidocaine with a total number 3 mL was used to anesthetize the area properly. A number 11 scalpel was used to make a 1 cm incision across the area of the abscess. The abscess was drained, complex loculations were broken down, and irrigated with normal saline. Sterile dressing applied. Diagnosis Primary Impression: Abscess of buttock, left Referrals: Primary Care Physician Additional Instructions: Rest and drink plenty of fluids. Take Bactrim as directed, until gone. Follow up with a primary care physician. Return to emergency room for worsening symptoms, as discussed. Med/Other Pt SpecificInfo: Prescription(s) given Scripts Sulfamethoxazole-Trimethoprim (Bactrim DS) 800-160 Mg Tab 1 TAB PO BID for Infection, #20 TAB 0 Refills Prov: Floridalma Rodriguez MD 12/08/17 Disposition: 01 DISCHARGE HOME Condition: Stable Oriana Daniel Dec 08, 2017 15:32
== END 2017-12-08 15:49 | disposition home or self-care (01) ==
LOC: NED 13:08 → NEPK 15:49
DX: L02.31 Cutaneous abscess of buttock (principal); J44.9 Chronic obstructive pulmonary disease, unspecified; Z72.0 Tobacco use
CPT/HCPCS: 10060